=== PATIENT | female | born 1950 | race Caucasian/White ===

== ENCOUNTER → 2017-08-05 | Outpatient (CLI) | payer MEDICARE, OTHER ==
[~2017-08-05] MED LIST: ABAT250V; ACET325 PO; ALBU3IS INH; ALBU90OI6 INH; ALLO100 PO; ALUMAGX30 PO; AMLO10; AMOCLA500 PO; AMYLIPPRO PO; ATEN100; ATEN50 PO; ATIVAN; Aldactone PO; Augmentin 875-1 EACH PO; BENAML10/5; BISA10S PR; BUME1 PO; Bacid1 EACH PO; Bactrim 400-801 EACH PO; CALCAVITDA PO; CALCIUM + D3 E1 EACH PO; CELE100 PO; CEPH500 PO; CHLO25 PO; CHOL10002 PO; COLL250TO TP; CRANBERRY TABL1 EACH PO; CREON; CREON DR 12,001 EACH PO; CREON DR 24,001 EACH PO; CREON PO; CYAN1000 PO; CYAN1000I IM; CYAN500 PO; Ceftin500 MG PO; Cipro500 MG PO; Cleocin HCl300 MG PO; Colace100 MG PO; Cranberry500 M1 PO; DOCU100 PO; DOXY100T53 PO; ELIQUIS2.5 MG PO; ELIQUIS5 MG PO; ENOX80I SC; ERGO50000 PO; FENO145 PO; FERR325 PO; FEXPSEER; FLUT.05NI; FOLI1; FOLI1 PO; FURO20; FURO20 PO; FURO80; FURO80 PO; GABA100 PO; GLIP10 PO; GLUCOSE; HYDACE10B PO; HYDACE5325 PO; HYDMOR2 PO; Hair, Skin & N1 EACH PO; Humalog100 UNIT/1; INSR10I SUBQ; INSUASPI; INSUASPI SC; INSULANI; INSULANI SC; INSULANI SUBQ; INSULANPEN SC; IRON256 MG PO; KETO120T TOP; LEVFLO500 PO; LEVO750 PO; LISI20; LISI20 PO; LISINOPRIL; MAGOXI400 PO; METF500; METF500 PO; METO2.5 PO; METO25 PO; METO25ER PO; METO50; METO50ER PO; METTREX2.5; METTREX2.5 PO; MORP30ER PO; MULVITMIND PO; MULVITMINE; Micro-K10 MEQ; Micro-K10 MEQ PO; Milk Of Ma400 MG/5 M PO; NAPR500 PO; Novolog Fl100 UNIT/1; Novolog Fl100 UNIT/1 SC; OMEP10ER PO; OMEP20ER; OMEP20ER PO; OMEPRAZOLE MAGN20 MG PO; ORENCIA IV; OXYC10ER PO; OXYC10TA19; OXYC5 PO; PARO20; PARO20 PO; PARO30; PAXIL; PAXIL40 MG PO; PENT400ER; PENT400ER PO; POTA10T PO; POTCHL10ER PO; POTCHL20ER PO; PRED10 PO; PRED20 PO; PRED5; PREG100; PREG100 PO; Paxil PO; Potassium99 MG; Prilosec Otc20 MG PO; RXHYD5325; RXHYD5325 PO; Rituxan10 MG/ML; Robaxin500 MG PO; SENN187 PO; SILSUL1TC TOP; SPIR25; SPIR25 PO; SULTRIDS; SULTRIDS PO; Senna-Docusate1 EACH PO; Silvadene20 GM TOP; THIA100 PO; TRAZ100; TRAZ100 PO; TRENTAL PO; Tamiflu75 MG PO; VITAMIN B-1100 MG PO; VITAMIN D22000 UNIT PO; VITAMIN D50000 UNIT PO; VITB100 PO; Vitamin D2000 UNIT PO; WARF5; WARF5 PO; XARELTO20 MG PO; ZOLP10 PO; Zofran Odt4 MG SL; Zofran4 MG PO; [UNRECOGNIZED DRUG - OTHER]; [UNRECOGNIZED DRUG - OTHER] PO; [UNRECOGNIZED DRUG - OTHER] TOP
== END ==
LOC: LAB SHORT 13:51 → PLD 13:51
DX: D48.5 Neoplasm of uncertain behavior of skin (principal)
CPT/HCPCS: 88305

== ENCOUNTER 2017-09-11 19:57 | Emergency (ER) | payer MEDICARE, OTHER ==
[~2017-09-11] VITALS: Ht 154.9 cm; Wt 81.7 kg
[~2017-09-11 19:57] MED LIST changes: -ALLO100 PO; -Augmentin 875-1 EACH PO; -BUME1 PO; -Bactrim 400-801 EACH PO; -DOXY100T53 PO; -Robaxin500 MG PO
[2017-09-11] MEDS ORDERED: CEPH500 PO (21:11)
[2018-02-21] MEDS ORDERED: CEPH500 PO (01:50)
== END 2017-09-11 21:29 | disposition home or self-care (01) ==
LOC: ER 19:57
DX: S51.812A Laceration without foreign body of left forearm, initial encounter (principal); W01.198A Fall on same level from slipping, tripping and stumbling with subsequent striking against other object, initial encounter; Z88.8 Allergy status to other drugs, medicaments and biological substances; Z79.899 Other long term (current) drug therapy; Z79.4 Long term (current) use of insulin; E11.9 Type 2 diabetes mellitus without complications; K21.9 Gastro-esophageal reflux disease without esophagitis; I10 Essential (primary) hypertension; Z87.891 Personal history of nicotine dependence
CPT/HCPCS: 12004; 73090; 90471; 90714; 99283

== ENCOUNTER 2017-09-24 10:14 | Emergency (ER) | payer MEDICARE, OTHER ==
[~2017-09-24] VITALS: Ht 167.6 cm; Wt 86.2 kg
[2017-09-24] MEDS ORDERED: CEPH500 PO (11:43)
[2017-09-24] MEDS ORDERED: DOXY100T53 PO (11:43)
[2018-02-21] MEDS ORDERED: CEPH500 PO (01:50)
== END 2017-09-24 11:59 | disposition home or self-care (01) ==
LOC: ER 10:14
DX: T81.33XA Disruption of traumatic injury wound repair, initial encounter (principal); S51.812D Laceration without foreign body of left forearm, subsequent encounter; Z88.8 Allergy status to other drugs, medicaments and biological substances; Z79.899 Other long term (current) drug therapy; Z79.52 Long term (current) use of systemic steroids; Z79.4 Long term (current) use of insulin; E11.9 Type 2 diabetes mellitus without complications; I10 Essential (primary) hypertension; Z87.891 Personal history of nicotine dependence; W18.39XD Other fall on same level, subsequent encounter
CPT/HCPCS: 99283

== ENCOUNTER 2017-10-12 22:16 | Emergency (ER) | payer MEDICARE, OTHER ==
[~2017-10-12] VITALS: Ht 154.9 cm; Wt 81.7 kg
[~2017-10-12 22:16] MED LIST changes: +DOXY100T53 PO
[2017-10-12 23:29] LABS: Source, Urine Voided
[2017-10-12 23:30] LABS: Bilirubin, Urine Neg (Neg); Blood, Urine 1+ (Neg); Glucose Qualitative, Urine Neg (Neg); Ketones, Urine Neg (Neg); Leukocyte Esterase, Urine Neg (Neg); Nitrite, Urine Neg (Neg); Protein, Urine Neg (Neg); Urobilinogen, Urine NORM (Normal)
[2017-10-12 23:39] LABS: Appearance, Urine Clear (Clear); Color, Urine Yellow (P-Yellow)
[2017-10-12 23:40] LABS: Bacteria Mod /hpf; Red Blood Cells, Urine 0-2 /hpf (0-2); Squamous Epithelial Cells Few /hpf (Few); White Blood Cells, Urine 0-2 /hpf (0-5)
[2017-10-13] MEDS ORDERED: Robaxin500 MG PO (00:09)
[2018-02-21] MEDS ORDERED: CEPH500 PO (01:50)
== END 2017-10-13 00:18 | disposition home or self-care (01) ==
LOC: ER 22:16
PROVIDERS: Physician Assistant
DX: M25.552 Pain in left hip (principal); K21.9 Gastro-esophageal reflux disease without esophagitis; E11.9 Type 2 diabetes mellitus without complications; I10 Essential (primary) hypertension; Z91.048 Other nonmedicinal substance allergy status; Z79.899 Other long term (current) drug therapy; Z79.52 Long term (current) use of systemic steroids; Z79.4 Long term (current) use of insulin; Z87.891 Personal history of nicotine dependence; Z87.81 Personal history of (healed) traumatic fracture
CPT/HCPCS: 73502; 81000; 81001; 87086; 99283

== ENCOUNTER 2018-01-29 07:27 | Inpatient (IN) | payer MEDICARE, OTHER ==
[~2018-01-29] VITALS: Ht 157.5 cm; Wt 88.1 kg
[~2018-01-29 07:27] MED LIST changes: +Robaxin500 MG PO
[2018-01-29] MEDS ORDERED: ALLO100 PO (07:40)
[2018-01-29 08:20] LABS: Source, Urine Catheter
[2018-01-29 08:23] LABS: Bilirubin, Urine Neg (Neg); Blood, Urine 2+ (Neg); Glucose Qualitative, Urine 1+ (Neg); Ketones, Urine Neg (Neg); Leukocyte Esterase, Urine 2+ (Neg); Nitrite, Urine Neg (Neg); Protein, Urine Neg (Neg); Specific Gravity, Urine 1.015 (1.003-1.022); Urobilinogen, Urine NORM (Normal)
[2018-01-29 08:29] LABS: Appearance, Urine Clear (Clear); Color, Urine Yellow (P-Yellow)
[2018-01-29 08:31] LABS: Bacteria Not Seen /hpf; Red Blood Cells, Urine 0-2 /hpf (0-2)
[2018-01-29 08:32] LABS: Squamous Epithelial Cells Rare /hpf (Few)
[2018-01-29 09:03] LABS: BASOPHILS ABSOLUTE AUTO 0.06 K/mm3 (0.00-0.23); BASOPHILS PERCENT AUTO 0 % (0-2); EOSINOPHILS ABSOLUTE AUTO 0.09 K/mm3 (0.00-0.68); EOSINOPHILS PERCENT AUTO 1 % (0-6); Hematocrit 32.4 % (33.0-51.0); Hemoglobin 10.8 g/dL (11.5-16.0); IMMATURE GRAN ABSOLUTE AUTO 0.07 K/mm3 (0.00-0.10); IMMATURE GRAN PERCENT AUTO 1 % (0-1); LYMPHOCYTES ABSOLUTE AUTO 1.85 K/mm3 (0.84-5.20); LYMPHOCYTES PERCENT AUTO 13 % (21-46); MONOCYTES ABSOLUTE AUTO 0.98 K/mm3 (0.16-1.47); MONOCYTES PERCENT AUTO 7 % (4-13); Mean Corpuscular HGB 33.6 pg (26.0-34.0); Mean Corpuscular HGB Conc 33.3 g/dL (31.5-36.5); Mean Corpuscular Volume 101 fL (80-100); Mean Platelet Volume 10.9 fL (9.1-12.4); NEUTROPHILS ABSOLUTE AUTO 11.52 K/mm3 (1.96-9.15); NEUTROPHILS PERCENT AUTO 79 % (41-73); Platelet Count 190 K/mm3 (150-400); RDW Coefficient Variation 13.4 % (11.7-14.2); RDW Standard Deviation 48.8 fL (35.1-46.3); Red Blood Cell Count 3.21 M/mm3 (3.80-5.20); White Blood Cell Count 14.57 K/mm3 (4.00-11.30)
[2018-01-29 09:20] LABS: Albumin, Blood 3.1 g/dL (3.4-5.0); Albumin/Globulin Ratio 1.1 (0.8-1.8); Bilirubin, Total 0.8 mg/dL (0.1-1.0); Bun/Creatinine Ratio 21.5 (12.0-20.0); Calcium, Blood 8.5 mg/dL (8.5-10.1); Globulin, Blood 2.9 g/dL (2.2-4.0); Potassium, Blood 3.6 mmol/L (3.5-5.5)
[2018-01-29 09:24] LABS: International Normalized Ratio 1.17; Prothrombin Time Results 11.9 Sec (9.7-11.5)
[2018-01-30 04:00] LABS: BASOPHILS ABSOLUTE AUTO 0.04 K/mm3 (0.00-0.23); BASOPHILS PERCENT AUTO 0 % (0-2); EOSINOPHILS ABSOLUTE AUTO 0.01 K/mm3 (0.00-0.68); EOSINOPHILS PERCENT AUTO 0 % (0-6); Hematocrit 30.4 % (33.0-51.0); Hemoglobin 9.8 g/dL (11.5-16.0); IMMATURE GRAN ABSOLUTE AUTO 0.04 K/mm3 (0.00-0.10); IMMATURE GRAN PERCENT AUTO 0 % (0-1); LYMPHOCYTES ABSOLUTE AUTO 2.03 K/mm3 (0.84-5.20); LYMPHOCYTES PERCENT AUTO 16 % (21-46); MONOCYTES ABSOLUTE AUTO 0.56 K/mm3 (0.16-1.47); MONOCYTES PERCENT AUTO 5 % (4-13); Mean Corpuscular HGB 32.6 pg (26.0-34.0); Mean Corpuscular HGB Conc 32.2 g/dL (31.5-36.5); Mean Corpuscular Volume 101 fL (80-100); Mean Platelet Volume 11.7 fL (9.1-12.4); NEUTROPHILS PERCENT AUTO 79 % (41-73); Platelet Count 173 K/mm3 (150-400); RDW Coefficient Variation 13.7 % (11.7-14.2); RDW Standard Deviation 49.8 fL (35.1-46.3); Red Blood Cell Count 3.01 M/mm3 (3.80-5.20); White Blood Cell Count 12.48 K/mm3 (4.00-11.30)
[2018-01-30 04:24] LABS: Anion Gap 8 mmol/L (6-16); Blood Urea Nitrogen 35 mg/dL (8-24); Bun/Creatinine Ratio 17.7 (12.0-20.0); CO2, Blood 27 mmol/L (21-32); Calcium, Blood 8.1 mg/dL (8.5-10.1); Chloride, Blood 108 mmol/L (98-108); Creatinine, Blood 1.98 mg/dL (0.40-1.00); Glomerular Filtration Rate 27 (60-); Glucose, Blood 236 mg/dL (70-99); Potassium, Blood 4.1 mmol/L (3.5-5.5); Sodium, Blood 143 mmol/L (136-145); Vancomycin, Random 10.2 ug/mL
[2018-01-31 05:22] LABS: BASOPHILS ABSOLUTE AUTO 0.05 K/mm3 (0.00-0.23); BASOPHILS PERCENT AUTO 1 % (0-2); EOSINOPHILS ABSOLUTE AUTO 0.11 K/mm3 (0.00-0.68); EOSINOPHILS PERCENT AUTO 1 % (0-6); Hematocrit 30.8 % (33.0-51.0); Hemoglobin 10.1 g/dL (11.5-16.0); IMMATURE GRAN ABSOLUTE AUTO 0.04 K/mm3 (0.00-0.10); IMMATURE GRAN PERCENT AUTO 1 % (0-1); LYMPHOCYTES ABSOLUTE AUTO 2.36 K/mm3 (0.84-5.20); LYMPHOCYTES PERCENT AUTO 27 % (21-46); MONOCYTES ABSOLUTE AUTO 0.72 K/mm3 (0.16-1.47); MONOCYTES PERCENT AUTO 8 % (4-13); Mean Corpuscular HGB 32.7 pg (26.0-34.0); Mean Corpuscular HGB Conc 32.8 g/dL (31.5-36.5); Mean Corpuscular Volume 100 fL (80-100); Mean Platelet Volume 11.4 fL (9.1-12.4); NEUTROPHILS ABSOLUTE AUTO 5.55 K/mm3 (1.96-9.15); NEUTROPHILS PERCENT AUTO 63 % (41-73); Platelet Count 182 K/mm3 (150-400); RDW Coefficient Variation 13.4 % (11.7-14.2); RDW Standard Deviation 48.6 fL (35.1-46.3); Red Blood Cell Count 3.09 M/mm3 (3.80-5.20); White Blood Cell Count 8.83 K/mm3 (4.00-11.30)
[2018-01-31 05:44] LABS: Albumin, Blood 2.6 g/dL (3.4-5.0); Anion Gap 9 mmol/L (6-16); Blood Urea Nitrogen 26 mg/dL (8-24); Bun/Creatinine Ratio 15.3 (12.0-20.0); CO2, Blood 25 mmol/L (21-32); Calcium, Blood 8.4 mg/dL (8.5-10.1); Chloride, Blood 111 mmol/L (98-108); Glomerular Filtration Rate 32 (60-); Glucose, Blood 119 mg/dL (70-99); Phosphorus, Blood 1.8 mg/dL (2.5-4.9); Potassium, Blood 3.9 mmol/L (3.5-5.5); Sodium, Blood 145 mmol/L (136-145); Vancomycin, Random 11.6 ug/mL
[2018-02-01 05:31] LABS: BASOPHILS ABSOLUTE AUTO 0.04 K/mm3 (0.00-0.23); BASOPHILS PERCENT AUTO 1 % (0-2); EOSINOPHILS ABSOLUTE AUTO 0.12 K/mm3 (0.00-0.68); EOSINOPHILS PERCENT AUTO 2 % (0-6); Hematocrit 30.5 % (33.0-51.0); IMMATURE GRAN ABSOLUTE AUTO 0.05 K/mm3 (0.00-0.10); IMMATURE GRAN PERCENT AUTO 1 % (0-1); LYMPHOCYTES ABSOLUTE AUTO 1.81 K/mm3 (0.84-5.20); LYMPHOCYTES PERCENT AUTO 26 % (21-46); MONOCYTES ABSOLUTE AUTO 0.72 K/mm3 (0.16-1.47); MONOCYTES PERCENT AUTO 11 % (4-13); Mean Corpuscular HGB 32.7 pg (26.0-34.0); Mean Corpuscular HGB Conc 32.8 g/dL (31.5-36.5); Mean Corpuscular Volume 100 fL (80-100); Mean Platelet Volume 11.2 fL (9.1-12.4); NEUTROPHILS ABSOLUTE AUTO 4.14 K/mm3 (1.96-9.15); NEUTROPHILS PERCENT AUTO 60 % (41-73); Platelet Count 187 K/mm3 (150-400); RDW Coefficient Variation 13.6 % (11.7-14.2); RDW Standard Deviation 49.1 fL (35.1-46.3); Red Blood Cell Count 3.06 M/mm3 (3.80-5.20); White Blood Cell Count 6.88 K/mm3 (4.00-11.30)
[2018-02-01 05:56] LABS: Albumin, Blood 2.7 g/dL (3.4-5.0); Anion Gap 8 mmol/L (6-16); Blood Urea Nitrogen 21 mg/dL (8-24); Bun/Creatinine Ratio 13.8 (12.0-20.0); CO2, Blood 25 mmol/L (21-32); Calcium, Blood 8.5 mg/dL (8.5-10.1); Chloride, Blood 113 mmol/L (98-108); Creatinine, Blood 1.52 mg/dL (0.40-1.00); Glomerular Filtration Rate 36 (60-); Glucose, Blood 91 mg/dL (70-99); Phosphorus, Blood 2.6 mg/dL (2.5-4.9); Potassium, Blood 3.6 mmol/L (3.5-5.5); Sodium, Blood 146 mmol/L (136-145)
[2018-02-02 05:46] LABS: BASOPHILS ABSOLUTE AUTO 0.05 K/mm3 (0.00-0.23); BASOPHILS PERCENT AUTO 1 % (0-2); EOSINOPHILS ABSOLUTE AUTO 0.14 K/mm3 (0.00-0.68); EOSINOPHILS PERCENT AUTO 2 % (0-6); Hematocrit 31.1 % (33.0-51.0); Hemoglobin 10.6 g/dL (11.5-16.0); IMMATURE GRAN ABSOLUTE AUTO 0.05 K/mm3 (0.00-0.10); IMMATURE GRAN PERCENT AUTO 1 % (0-1); LYMPHOCYTES ABSOLUTE AUTO 2.45 K/mm3 (0.84-5.20); LYMPHOCYTES PERCENT AUTO 35 % (21-46); MONOCYTES ABSOLUTE AUTO 0.74 K/mm3 (0.16-1.47); MONOCYTES PERCENT AUTO 11 % (4-13); Mean Corpuscular HGB 33.9 pg (26.0-34.0); Mean Corpuscular HGB Conc 34.1 g/dL (31.5-36.5); Mean Corpuscular Volume 99 fL (80-100); Mean Platelet Volume 10.5 fL (9.1-12.4); NEUTROPHILS ABSOLUTE AUTO 3.58 K/mm3 (1.96-9.15); NEUTROPHILS PERCENT AUTO 51 % (41-73); Platelet Count 195 K/mm3 (150-400); RDW Coefficient Variation 13.7 % (11.7-14.2); RDW Standard Deviation 49.7 fL (35.1-46.3); Red Blood Cell Count 3.13 M/mm3 (3.80-5.20); White Blood Cell Count 7.01 K/mm3 (4.00-11.30)
[2018-02-02 06:03] LABS: Albumin, Blood 2.9 g/dL (3.4-5.0); Anion Gap 10 mmol/L (6-16); Blood Urea Nitrogen 21 mg/dL (8-24); Bun/Creatinine Ratio 15.8 (12.0-20.0); CO2, Blood 24 mmol/L (21-32); Calcium, Blood 9.1 mg/dL (8.5-10.1); Chloride, Blood 113 mmol/L (98-108); Creatinine, Blood 1.33 mg/dL (0.40-1.00); Glomerular Filtration Rate 42 (60-); Glucose, Blood 74 mg/dL (70-99); Phosphorus, Blood 3.5 mg/dL (2.5-4.9); Potassium, Blood 3.5 mmol/L (3.5-5.5); Sodium, Blood 147 mmol/L (136-145)
[2018-02-02 08:45] LABS: Vancomycin, Trough 12.3 ug/mL (5.0-10.0)
[2018-02-02] MEDS ORDERED: Silvadene20 GM TOP (13:28)
[2018-02-02] MEDS ORDERED: BUME1 PO (13:29)
[2018-02-02] MEDS ORDERED: CEPH500 PO (13:30)
== END 2018-02-02 14:39 | disposition home or self-care (01) | DRG 871 ==
LOC: ER 07:27 → ICUW 10:53 → MEDS 10:53 → ICUW 11:37 → MEDS 01-30 13:27 → ENPENDDIS 02-02 10:33 → MEDS 02-02 14:39
PROVIDERS: Family Medicine; Nurse Practitioner Family
PROC: 05HM33Z Insertion of Infusion Device into Right Internal Jugular Vein, Percutaneous Approach (ICD-10-PCS; principal; 2018-01-29)
PROC: B543ZZA Ultrasonography of Right Jugular Veins, Guidance (ICD-10-PCS; 2018-01-29)
PROC: 0JDQ3ZZ Extraction of Right Foot Subcutaneous Tissue and Fascia, Percutaneous Approach (ICD-10-PCS; 2018-01-29)
PROC: 02H633Z Insertion of Infusion Device into Right Atrium, Percutaneous Approach (ICD-10-PCS; 2018-01-29)
DX: A41.9 Sepsis, unspecified organism (principal); G92 Toxic encephalopathy; N39.0 Urinary tract infection, site not specified; D68.61 Antiphospholipid syndrome; L03.115 Cellulitis of right lower limb; N17.9 Acute kidney failure, unspecified; E87.0 Hyperosmolality and hypernatremia; N18.4 Chronic kidney disease, stage 4 (severe); M79.7 Fibromyalgia; Z79.4 Long term (current) use of insulin; K21.9 Gastro-esophageal reflux disease without esophagitis; F32.9 Major depressive disorder, single episode, unspecified; Z87.891 Personal history of nicotine dependence; I95.9 Hypotension, unspecified; I12.9 Hypertensive chronic kidney disease with stage 1 through stage 4 chronic kidney disease, or unspecified chronic kidney disease; M06.9 Rheumatoid arthritis, unspecified; E11.621 Type 2 diabetes mellitus with foot ulcer; R65.20 Severe sepsis without septic shock; E11.649 Type 2 diabetes mellitus with hypoglycemia without coma; D63.1 Anemia in chronic kidney disease; L97.519 Non-pressure chronic ulcer of other part of right foot with unspecified severity; Z86.718 Personal history of other venous thrombosis and embolism; G89.4 Chronic pain syndrome; Z89.411 Acquired absence of right great toe; E11.22 Type 2 diabetes mellitus with diabetic chronic kidney disease
CPT/HCPCS: 36415; 36556; 71046; 73610; 73718; 73721; 80048; 80053; 80069; 80202; 81001; 82947; 83605; 85025; 85610; 85730; 87040; 87070; 87075; 87086; 87205; 93926; 93971; 96361; 96365; 96366; 99285-25; C1751; J0360; J1650; J1815; J1940; J2543; J3010; J3370; J7030; J7120; P9612

== ENCOUNTER 2018-03-06 11:00 | Emergency (ER) | payer MEDICARE, OTHER ==
[~2018-03-06] VITALS: Ht 167.6 cm; Wt 86.2 kg
[~2018-03-06 11:00] MED LIST changes: +ALLO100 PO; +BUME1 PO
== END 2018-03-06 11:53 | disposition home or self-care (01) ==
LOC: ER 11:00
DX: S81.012D Laceration without foreign body, left knee, subsequent encounter (principal); E11.9 Type 2 diabetes mellitus without complications; K21.9 Gastro-esophageal reflux disease without esophagitis; Z91.048 Other nonmedicinal substance allergy status; Z79.899 Other long term (current) drug therapy; Z79.52 Long term (current) use of systemic steroids; Z79.4 Long term (current) use of insulin; Z87.891 Personal history of nicotine dependence

== ENCOUNTER 2018-03-29 08:47 | Inpatient (IN) | payer MEDICARE, OTHER ==
[~2018-03-29] VITALS: Ht 154.9 cm; Wt 85.7 kg
[2018-03-29 09:11] LABS: BASOPHILS ABSOLUTE AUTO 0.07 K/mm3 (0.00-0.23); BASOPHILS PERCENT AUTO 1 % (0-2); EOSINOPHILS ABSOLUTE AUTO 0.15 K/mm3 (0.00-0.68); EOSINOPHILS PERCENT AUTO 2 % (0-6); Hematocrit 35.5 % (33.0-51.0); Hemoglobin 12.1 g/dL (11.5-16.0); IMMATURE GRAN ABSOLUTE AUTO 0.06 K/mm3 (0.00-0.10); IMMATURE GRAN PERCENT AUTO 1 % (0-1); LYMPHOCYTES ABSOLUTE AUTO 3.34 K/mm3 (0.84-5.20); LYMPHOCYTES PERCENT AUTO 32 % (21-46); MONOCYTES ABSOLUTE AUTO 1.09 K/mm3 (0.16-1.47); MONOCYTES PERCENT AUTO 11 % (4-13); Mean Corpuscular HGB 33.8 pg (26.0-34.0); Mean Corpuscular HGB Conc 34.1 g/dL (31.5-36.5); Mean Corpuscular Volume 99 fL (80-100); NEUTROPHILS PERCENT AUTO 54 % (41-73); Platelet Count 328 K/mm3 (150-400); RDW Coefficient Variation 13.2 % (11.7-14.2); RDW Standard Deviation 47.6 fL (35.1-46.3); Red Blood Cell Count 3.58 M/mm3 (3.80-5.20); White Blood Cell Count 10.31 K/mm3 (4.00-11.30)
[2018-03-29 09:26] LABS: Alanine Aminotransfer (ALT/SGP 23 U/L (12-78); Albumin/Globulin Ratio 0.9 (0.8-1.8); Alk Phos 38 U/L (50-136); Anion Gap 14 mmol/L (6-16); Aspartate Aminotrans (AST/SGOT 32 U/L (12-37); Bilirubin, Total 0.6 mg/dL (0.1-1.0); Blood Urea Nitrogen 69 mg/dL (8-24); Bun/Creatinine Ratio 14.3 (12.0-20.0); CO2, Blood 27 mmol/L (21-32); Calcium, Blood 8.7 mg/dL (8.5-10.1); Chloride, Blood 86 mmol/L (98-108); Creatinine, Blood 4.81 mg/dL (0.40-1.00); Globulin, Blood 3.4 g/dL (2.2-4.0); Glomerular Filtration Rate 10 (60-); Glucose, Blood 283 mg/dL (70-99); Potassium, Blood 3.7 mmol/L (3.5-5.5); Sodium, Blood 127 mmol/L (136-145); Total Protein, Blood 6.4 g/dL (6.4-8.2)
[2018-03-29 09:41] LABS: Source, Urine Clean Catch
[2018-03-29 09:46] LABS: Bilirubin, Urine Neg (Neg); Blood, Urine 2+ (Neg); Glucose Qualitative, Urine Neg (Neg); Ketones, Urine Neg (Neg); Leukocyte Esterase, Urine 2+ (Neg); Nitrite, Urine Neg (Neg); Protein, Urine Neg (Neg); Urobilinogen, Urine NORM (Normal)
[2018-03-29 09:56] LABS: Troponin I <0.015 ng/mL (0.000-0.040)
[2018-03-29 09:57] LABS: Appearance, Urine Clear (Clear); Color, Urine Yellow (P-Yellow)
[2018-03-29 10:01] LABS: Bacteria Few /hpf; Squamous Epithelial Cells Mod /hpf (Few)
[2018-03-29] MEDS ORDERED: Bactrim 400-801 EACH PO (10:46)
[2018-03-29 16:47] LABS: International Normalized Ratio 1.2; Prothrombin Time Results 12.2 Sec (9.7-11.5)
[2018-03-30 07:50] LABS: BASOPHILS ABSOLUTE AUTO 0.02 K/mm3 (0.00-0.23); BASOPHILS PERCENT AUTO 0 % (0-2); EOSINOPHILS PERCENT AUTO 0 % (0-6); Hematocrit 29.1 % (33.0-51.0); IMMATURE GRAN ABSOLUTE AUTO 0.06 K/mm3 (0.00-0.10); IMMATURE GRAN PERCENT AUTO 1 % (0-1); LYMPHOCYTES ABSOLUTE AUTO 2.51 K/mm3 (0.84-5.20); LYMPHOCYTES PERCENT AUTO 29 % (21-46); MONOCYTES ABSOLUTE AUTO 0.65 K/mm3 (0.16-1.47); MONOCYTES PERCENT AUTO 8 % (4-13); Mean Corpuscular HGB 34.3 pg (26.0-34.0); Mean Corpuscular HGB Conc 35.7 g/dL (31.5-36.5); Mean Platelet Volume 11.1 fL (9.1-12.4); NEUTROPHILS ABSOLUTE AUTO 5.31 K/mm3 (1.96-9.15); NEUTROPHILS PERCENT AUTO 62 % (41-73); Platelet Count 219 K/mm3 (150-400); RDW Coefficient Variation 12.9 % (11.7-14.2); RDW Standard Deviation 44.6 fL (35.1-46.3); Red Blood Cell Count 3.03 M/mm3 (3.80-5.20); White Blood Cell Count 8.55 K/mm3 (4.00-11.30)
[2018-03-30 07:52] LABS: Mean Corpuscular Volume 96 fL (80-100)
[2018-03-30 07:53] LABS: Hemoglobin 10.4 g/dL (11.5-16.0)
[2018-03-30 08:11] LABS: Bun/Creatinine Ratio 15.4 (12.0-20.0); Calcium, Blood 7.6 mg/dL (8.5-10.1); Creatinine, Blood 3.64 mg/dL (0.40-1.00); Potassium, Blood 3.7 mmol/L (3.5-5.5)
[2018-03-31 06:02] LABS: BASOPHILS ABSOLUTE AUTO 0.04 K/mm3 (0.00-0.23); BASOPHILS PERCENT AUTO 1 % (0-2); EOSINOPHILS ABSOLUTE AUTO 0.06 K/mm3 (0.00-0.68); EOSINOPHILS PERCENT AUTO 1 % (0-6); Hematocrit 33.2 % (33.0-51.0); Hemoglobin 11.1 g/dL (11.5-16.0); IMMATURE GRAN ABSOLUTE AUTO 0.04 K/mm3 (0.00-0.10); IMMATURE GRAN PERCENT AUTO 1 % (0-1); LYMPHOCYTES ABSOLUTE AUTO 2.54 K/mm3 (0.84-5.20); LYMPHOCYTES PERCENT AUTO 42 % (21-46); MONOCYTES ABSOLUTE AUTO 0.55 K/mm3 (0.16-1.47); MONOCYTES PERCENT AUTO 9 % (4-13); Mean Corpuscular HGB 33.6 pg (26.0-34.0); Mean Corpuscular HGB Conc 33.4 g/dL (31.5-36.5); Mean Corpuscular Volume 101 fL (80-100); NEUTROPHILS ABSOLUTE AUTO 2.84 K/mm3 (1.96-9.15); NEUTROPHILS PERCENT AUTO 47 % (41-73); Platelet Count 267 K/mm3 (150-400); RDW Coefficient Variation 13.2 % (11.7-14.2); RDW Standard Deviation 48.6 fL (35.1-46.3); White Blood Cell Count 6.07 K/mm3 (4.00-11.30)
[2018-03-31 06:30] LABS: Albumin, Blood 2.7 g/dL (3.4-5.0); Anion Gap 9 mmol/L (6-16); Blood Urea Nitrogen 45 mg/dL (8-24); Bun/Creatinine Ratio 15.1 (12.0-20.0); CO2, Blood 27 mmol/L (21-32); Calcium, Blood 8.5 mg/dL (8.5-10.1); Chloride, Blood 103 mmol/L (98-108); Creatinine, Blood 2.99 mg/dL (0.40-1.00); Glomerular Filtration Rate 17 (60-); Glucose, Blood 107 mg/dL (70-99); Phosphorus, Blood 3.2 mg/dL (2.5-4.9); Potassium, Blood 4.3 mmol/L (3.5-5.5); Sodium, Blood 139 mmol/L (136-145); Vancomycin, Random 15.7 ug/mL
[2018-04-01 05:48] LABS: Vancomycin, Random 16.9 ug/mL
[2018-04-01 08:20] LABS: BASOPHILS ABSOLUTE AUTO 0.05 K/mm3 (0.00-0.23); BASOPHILS PERCENT AUTO 1 % (0-2); EOSINOPHILS PERCENT AUTO 2 % (0-6); Hematocrit 34.6 % (33.0-51.0); Hemoglobin 11.3 g/dL (11.5-16.0); IMMATURE GRAN ABSOLUTE AUTO 0.04 K/mm3 (0.00-0.10); IMMATURE GRAN PERCENT AUTO 1 % (0-1); LYMPHOCYTES ABSOLUTE AUTO 2.67 K/mm3 (0.84-5.20); LYMPHOCYTES PERCENT AUTO 40 % (21-46); MONOCYTES ABSOLUTE AUTO 0.68 K/mm3 (0.16-1.47); MONOCYTES PERCENT AUTO 10 % (4-13); Mean Corpuscular HGB 33.7 pg (26.0-34.0); Mean Corpuscular HGB Conc 32.7 g/dL (31.5-36.5); Mean Corpuscular Volume 103 fL (80-100); Mean Platelet Volume 11.4 fL (9.1-12.4); NEUTROPHILS ABSOLUTE AUTO 3.15 K/mm3 (1.96-9.15); NEUTROPHILS PERCENT AUTO 47 % (41-73); Platelet Count 246 K/mm3 (150-400); RDW Coefficient Variation 13.4 % (11.7-14.2); RDW Standard Deviation 50.9 fL (35.1-46.3); Red Blood Cell Count 3.35 M/mm3 (3.80-5.20); White Blood Cell Count 6.69 K/mm3 (4.00-11.30)
[2018-04-01 09:33] LABS: Bun/Creatinine Ratio 14.9 (12.0-20.0); Creatinine, Blood 2.42 mg/dL (0.40-1.00)
[2018-04-02 05:33] LABS: Hematocrit 35.7 % (33.0-51.0); Hemoglobin 11.9 g/dL (11.5-16.0); Mean Corpuscular HGB Conc 33.3 g/dL (31.5-36.5); Mean Platelet Volume 11.5 fL (9.1-12.4); Platelet Count 187 K/mm3 (150-400); RDW Coefficient Variation 13.3 % (11.7-14.2); RDW Standard Deviation 48.3 fL (35.1-46.3); Red Blood Cell Count 3.61 M/mm3 (3.80-5.20); White Blood Cell Count 7.94 K/mm3 (4.00-11.30)
[2018-04-02 05:35] LABS: Anion Gap 12 mmol/L (6-16); Blood Urea Nitrogen 32 mg/dL (8-24); Bun/Creatinine Ratio 14.1 (12.0-20.0); CO2, Blood 20 mmol/L (21-32); Calcium, Blood 8.8 mg/dL (8.5-10.1); Chloride, Blood 106 mmol/L (98-108); Creatinine, Blood 2.27 mg/dL (0.40-1.00); Glomerular Filtration Rate 23 (60-); Glucose, Blood 156 mg/dL (70-99); Mean Corpuscular Volume 99 fL (80-100); Potassium, Blood 4.2 mmol/L (3.5-5.5); Sodium, Blood 138 mmol/L (136-145); Vancomycin, Random 18.7 ug/mL
[2018-04-02] MEDS ORDERED: ELIQUIS5 MG PO (14:33)
[2018-04-02] MEDS ORDERED: ACET325 PO (14:33)
[2018-04-02] MEDS ORDERED: Augmentin 875-1 EACH PO (14:38)
== END 2018-04-02 15:42 | disposition home or self-care (01) | DRG 871 ==
LOC: ER 08:47 → ICUW 11:06 → MEDS 11:06 → ICUE 11:06 → MEDS 03-30 13:30
PROVIDERS: Emergency Medicine; Internal Medicine; Internal Medicine Critical Care Medicine; Pharmacist
DX: A41.9 Sepsis, unspecified organism (principal); R65.21 Severe sepsis with septic shock; K85.90 Acute pancreatitis without necrosis or infection, unspecified; G92 Toxic encephalopathy; N17.9 Acute kidney failure, unspecified; D68.61 Antiphospholipid syndrome; N39.0 Urinary tract infection, site not specified; L03.116 Cellulitis of left lower limb; L03.115 Cellulitis of right lower limb; K62.5 Hemorrhage of anus and rectum; N10 Acute pyelonephritis; M94.8X9 Other specified disorders of cartilage, unspecified sites; Z79.4 Long term (current) use of insulin; E11.9 Type 2 diabetes mellitus without complications; K21.9 Gastro-esophageal reflux disease without esophagitis; Z86.14 Personal history of Methicillin resistant Staphylococcus aureus infection; Z87.891 Personal history of nicotine dependence; E11.621 Type 2 diabetes mellitus with foot ulcer; I95.9 Hypotension, unspecified; R53.83 Other fatigue; E78.5 Hyperlipidemia, unspecified; I12.9 Hypertensive chronic kidney disease with stage 1 through stage 4 chronic kidney disease, or unspecified chronic kidney disease; E86.0 Dehydration; N18.3 Chronic kidney disease, stage 3 (moderate); T37.0X5A Adverse effect of sulfonamides, initial encounter; Y92.9 Unspecified place or not applicable; T40.601A Poisoning by unspecified narcotics, accidental (unintentional), initial encounter; L97.519 Non-pressure chronic ulcer of other part of right foot with unspecified severity; M35.9 Systemic involvement of connective tissue, unspecified; M94.1 Relapsing polychondritis
CPT/HCPCS: 36415; 51702; 71045; 73630; 80048; 80053; 80069; 80202; 81001; 82530; 82947; 83605; 83735; 84484; 85025; 85027; 85379; 85610; 85730; 87040; 87076; 87086; 87185; 93005; 93010; 93306; 93970; 94760; 96361; 96365; 96367; 96375; 98960; 99285-25; C9113; J1644; J1815; J2543; J2930; J3010; J3370; J7030; J7060; J7120; P9612

== ENCOUNTER 2018-07-25 09:06 | Inpatient (IN) | payer MEDICARE, OTHER ==
[~2018-07-25] VITALS: Ht 165.1 cm; Wt 82.3 kg
[~2018-07-25 09:06] MED LIST changes: +Augmentin 875-1 EACH PO; +Bactrim 400-801 EACH PO
[2018-07-25 09:31] LABS: BASOPHILS ABSOLUTE AUTO 0.07 K/mm3 (0.00-0.23); BASOPHILS PERCENT AUTO 1 % (0-2); EOSINOPHILS ABSOLUTE AUTO 0.07 K/mm3 (0.00-0.68); EOSINOPHILS PERCENT AUTO 1 % (0-6); Hematocrit 39.8 % (33.0-51.0); Hemoglobin 13.9 g/dL (11.5-16.0); IMMATURE GRAN ABSOLUTE AUTO 0.05 K/mm3 (0.00-0.10); IMMATURE GRAN PERCENT AUTO 0 % (0-1); LYMPHOCYTES PERCENT AUTO 22 % (21-46); MONOCYTES ABSOLUTE AUTO 1.36 K/mm3 (0.16-1.47); MONOCYTES PERCENT AUTO 12 % (4-13); Mean Corpuscular HGB 33.7 pg (26.0-34.0); Mean Corpuscular HGB Conc 34.9 g/dL (31.5-36.5); Mean Corpuscular Volume 96 fL (80-100); Mean Platelet Volume 11.4 fL (9.1-12.4); NEUTROPHILS PERCENT AUTO 65 % (41-73); Platelet Count 222 K/mm3 (150-400); RDW Coefficient Variation 12.9 % (11.7-14.2); RDW Standard Deviation 45.7 fL (35.1-46.3); Red Blood Cell Count 4.13 M/mm3 (3.80-5.20); White Blood Cell Count 11.85 K/mm3 (4.00-11.30)
[2018-07-25 09:46] LABS: Source, Urine Catheter
[2018-07-25 09:51] LABS: Bilirubin, Urine Neg (Neg); Blood, Urine 4+ (Neg); Glucose Qualitative, Urine Neg (Neg); Ketones, Urine Neg (Neg); Leukocyte Esterase, Urine 3+ (Neg); Nitrite, Urine Neg (Neg); Protein, Urine 2+ (Neg); Urobilinogen, Urine 1+ (Normal)
[2018-07-25 10:04] LABS: Color, Urine Yellow (P-Yellow)
[2018-07-25 10:05] LABS: Albumin, Blood 3.2 g/dL (3.4-5.0); Albumin/Globulin Ratio 0.9 (0.8-1.8); Bilirubin, Total 0.9 mg/dL (0.1-1.0); Bun/Creatinine Ratio 30.3 (12.0-20.0); Calcium, Blood 9.6 mg/dL (8.5-10.1); Creatinine, Blood 1.55 mg/dL (0.40-1.00); Globulin, Blood 3.6 g/dL (2.2-4.0); Potassium, Blood 2.3 mmol/L (3.5-5.5); Total Protein, Blood 6.8 g/dL (6.4-8.2)
[2018-07-25 10:05] LABS: Appearance, Urine Hazy (Clear)
[2018-07-25 10:06] LABS: Bacteria Many /hpf; Red Blood Cells, Urine TNTC /hpf (0-2); Transitional Epithelial Cells Mod /hpf ({null, 0-Rare}); White Blood Cells, Urine TNTC /hpf (0-5)
[2018-07-25 10:07] LABS: Squamous Epithelial Cells Rare /hpf (Few)
[2018-07-25] MEDS ORDERED: PREG100 PO (10:26)
[2018-07-25] MEDS ORDERED: Silvadene20 GM TOP (10:26)
[2018-07-25] MEDS ORDERED: Novolin R100 UNIT/M SC (10:27)
[2018-07-25] MEDS ORDERED: HYDMOR2 PO (10:27)
[2018-07-25] MEDS ORDERED: PRED10 PO (10:28)
[2018-07-25] MEDS ORDERED: ELIQUIS5 MG PO (10:28)
[2018-07-25] MEDS ORDERED: HUMALOG KW200 UNIT/1 (10:29)
[2018-07-25] MEDS ORDERED: INSULANPEN SC (10:30)
[2018-07-25] MEDS ORDERED: METO25 PO (10:30)
[2018-07-25] MEDS ORDERED: OMEPRAZOLE MAGN20 MG PO (10:31)
[2018-07-25] MEDS ORDERED: PARO20 PO (10:31)
[2018-07-25] MEDS ORDERED: FENO145 PO (10:31)
[2018-07-25] MEDS ORDERED: B-1100 MG PO (10:32)
[2018-07-25] MEDS ORDERED: CREON DR 12,001 EACH PO (10:32)
[2018-07-25] MEDS ORDERED: CALCIUM + D3 E1 EACH PO (10:32)
[2018-07-25] MEDS ORDERED: FOLI1 PO (10:32)
[2018-07-25] MEDS ORDERED: METO2.5 PO (10:33)
--- NOTE | 2018-07-25 18:00 | NUR ---
SHIFT SUMMARY PATIENT BROUGHT TO THE FLOOR TODAY IN THE 1200 HOUR. 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 SHE WAS GIVEN A DOSE OF ROCEPHIN IN THE ER PRIOR TO ADMISSION TO THE FLOOR SO NO WOUND CULTURE COULD BE OBTAINED. SHE ALSO HAS HISTORY OF ESBL IN HER URINE AND BLOOD. PATIENT IS LETHARGIC AND HAS REQUIRED STERNAL RUB IN ORDER TO WAKE HER. SHE STARTLES FOR A MOMENT, AND GOES RIGHT BACK TO SLEEP. CALLED PATIENTS PHARMACY FOR AN UPDATED MEDICATION LIST AND VERIFIED THAT SHE HAS NOT PICKED UP SOME OF HER MEDS IN A WHILE. PATIENT IS LETHARGIC, LUNGS DIM, AND ON TELE RUNNING NORMAL SINUS RHYTHM. PATIENTS SPOUSE WAS IN ASKING QUESTIONS ABOUT HER CONDITION AND HOW SHE WAS FEELING. WHILE THE PATIENT WAS AWAKE SHE ASKED FOR HER PAIN MEDICATIONS, THE PATIENT HAS BEEN UNABLE TO KEEP HER EYES OPEN FOR MORE THAN 3 SECONDS SINCE SHE HAS GOTTEN TO THE FLOOR. PATIENT HAS LACTATED RINGERS RUNNING @ 75ML/HR AND HAS HAD TWO 20MEQ PIGGYBACKS OF POTASSIUM SINCE SHE HAS ARRIVED. I WAS ABLE TO GET THE PATIENT TO TAKE ONE DOSE OF 40MEQ OF POTASSIUM PO AND SINCE THEN THE PATIENT HAS BEEN UNABLE TO WAKE UP FOR A PERIOD OF TIME. SHE IS UNSAFE TO TAKE HER PO MEDS AT THIS TIME. SHE ARRIVED WITH A WOUND ON HER RLE THAT HAD AN FELICITA BANDAGE AND SOME GAUZE PADS ON. THIS BANDAGE WAS STUCK TO HER LEG AND NEEDED TO BE SOAKED TO BE REMOVED. BANDAGE WAS REMOVED TO REVEAL AN ULCER ON THE SIDE OF HER LEG AND REDRESSED THE WOUND WITH AN ABD PAD AND FELICITA WRAP. WILL CONTINUE TO MONITOR FOR CHANGES IN THE PATIENTS CONDITION. HER VITALS LOOK OKAY, WILL CONTINUE TO ASSESS FOR NEW CHANGES.
[2018-07-26 05:09] LABS: BASOPHILS ABSOLUTE AUTO 0.06 K/mm3 (0.00-0.23); BASOPHILS PERCENT AUTO 1 % (0-2); EOSINOPHILS ABSOLUTE AUTO 0.04 K/mm3 (0.00-0.68); EOSINOPHILS PERCENT AUTO 0 % (0-6); Hematocrit 37.5 % (33.0-51.0); Hemoglobin 12.4 g/dL (11.5-16.0); IMMATURE GRAN ABSOLUTE AUTO 0.04 K/mm3 (0.00-0.10); IMMATURE GRAN PERCENT AUTO 0 % (0-1); LYMPHOCYTES ABSOLUTE AUTO 2.83 K/mm3 (0.84-5.20); LYMPHOCYTES PERCENT AUTO 29 % (21-46); MONOCYTES ABSOLUTE AUTO 0.93 K/mm3 (0.16-1.47); MONOCYTES PERCENT AUTO 10 % (4-13); Mean Corpuscular HGB 33.5 pg (26.0-34.0); Mean Corpuscular HGB Conc 33.1 g/dL (31.5-36.5); NEUTROPHILS ABSOLUTE AUTO 5.78 K/mm3 (1.96-9.15); NEUTROPHILS PERCENT AUTO 60 % (41-73); Platelet Count 178 K/mm3 (150-400); RDW Coefficient Variation 13.1 % (11.7-14.2); RDW Standard Deviation 48.7 fL (35.1-46.3); White Blood Cell Count 9.68 K/mm3 (4.00-11.30)
[2018-07-26 05:19] LABS: Mean Corpuscular Volume 101 fL (80-100)
[2018-07-26 05:25] LABS: Calcium, Blood 8.7 mg/dL (8.5-10.1); Creatinine, Blood 1.27 mg/dL (0.40-1.00); Potassium, Blood 3.1 mmol/L (3.5-5.5)
--- NOTE | 2018-07-26 06:32 | NUR ---
SHIFT SUMMARY PT SLEPT WELL T/O NIGHT. ALERT TO SELF & PLACE. REPORTS FEELING CONFUSED & DISORIENTED, ASKS WHAT DAY IT IS & WHY SHE HAS TO STAY IN THE HOSPITAL. STATES "THE PILLOWS LOOK LIKE PEOPLE SITTING ON THE BENCH, CAN YOU FLATTEN THEM?" VSS. AFREBRILE T/O NIGHT, DENIES CHILLS, N/V, OR SOB. SPO2 @ 98% ON 2L TURNED O2 DOWN TO 1L. PT REPORTS CONSTANT 8/10 PAIN IN RLE, MEDICATED 1X W/DILAUDID PER ORDERS. CHEM BG LAST NIGHT @349, CALLED HOSPITALIST FERN & HE ORDERED 1X DOSE OF 8U REGULAR INSULIN. PT REPORTS "FEELING BETTER" THIS AM. CALL LIGHT IN REACH & BED IN LOWEST POSITION.
--- NOTE | 2018-07-26 06:44 | NUR ---
SHIFT SUMMARY PT REPORTS ONLY GETTING ROUGHLY 1 HOUR OF SLEEP T/O NIGHT. AOX4. AFEBRILE, PER YARN WASHER MONITOR SINUS TACH W/HR 115, RR 24-28, SPO2 @100% ON 2L. PT REPORTS SOB EVEN AFTER RECIEVING SCHEDULED BREATHING TX T/O NIGHT. PT TRI-PODING ON SIDE OF BED W/LABOURED BREATHING. PT REPORTS FEELING ANXIOUS DUE TO NOT BEING ABLE TO BREATH. DISCUSSED W/DR THOMAS PTS SOB THIS AM & HE INFORMED ME HE ORDERED BIPAP/CHEST XRAY, ALSO ASKED FOR SOME PRN ATIVAN TO HELP RELAX. HEPARIN DRIP RUNNING PER PHARMACY ORDERS. CALL LIGHT IN REACH & @ BEDSIDE.
--- NOTE | 2018-07-26 18:36 | NUR ---
SHIFT SUMMARY PATIENT MORE PLEASANT TODAY. SHE DENIES PAIN DURING ASSESSMENT. SHE HAS BEEN AWAKE FOR SHORT PERIODS TODAY. SHE PULLED HER IV ON ACCIDENT THERE IS A NEW 22G IN HER RIGHT UPPER ARM. POTENTIAL DISCHARGE TOMORROW.
--- NOTE | 2018-07-27 04:54 | NUR ---
SHIFT SUMMARY PT SLEPT WELL T/O NIGHT. AOX3, FORGETFUL @TIMES. VSS. PT DENIES SOB, CHILLS OR N/V. PT REPORTS 02/27 RLE WOUND/FOOT, MEDICATED 2X W/DILAUDID PER ORDERS. CHEM BG 330 @HS & PT MEDICATED W/10U LANTUS PER ORDERS. RLE WOUND DRESSING WAS CHANGED, SCANT AMOUNT PURULENT DRAINAGE NOTED, DRESSING IS C/D/I. CALL LIGHT IS IN REACH & BED IS IN LOWEST POSITION.
[2018-07-27 05:22] LABS: BASOPHILS ABSOLUTE AUTO 0.06 K/mm3 (0.00-0.23); BASOPHILS PERCENT AUTO 1 % (0-2); EOSINOPHILS ABSOLUTE AUTO 0.11 K/mm3 (0.00-0.68); EOSINOPHILS PERCENT AUTO 1 % (0-6); Hematocrit 38.3 % (33.0-51.0); Hemoglobin 12.7 g/dL (11.5-16.0); IMMATURE GRAN ABSOLUTE AUTO 0.06 K/mm3 (0.00-0.10); IMMATURE GRAN PERCENT AUTO 1 % (0-1); LYMPHOCYTES ABSOLUTE AUTO 3.12 K/mm3 (0.84-5.20); LYMPHOCYTES PERCENT AUTO 34 % (21-46); MONOCYTES ABSOLUTE AUTO 0.84 K/mm3 (0.16-1.47); MONOCYTES PERCENT AUTO 9 % (4-13); Mean Corpuscular HGB 33.3 pg (26.0-34.0); Mean Corpuscular HGB Conc 33.2 g/dL (31.5-36.5); Mean Corpuscular Volume 101 fL (80-100); Mean Platelet Volume 11.4 fL (9.1-12.4); NEUTROPHILS PERCENT AUTO 54 % (41-73); Platelet Count 187 K/mm3 (150-400); RDW Coefficient Variation 13.2 % (11.7-14.2); RDW Standard Deviation 48.9 fL (35.1-46.3); Red Blood Cell Count 3.81 M/mm3 (3.80-5.20); White Blood Cell Count 9.19 K/mm3 (4.00-11.30)
[2018-07-27 05:38] LABS: Calcium, Blood 9.1 mg/dL (8.5-10.1); Creatinine, Blood 1.26 mg/dL (0.40-1.00); Potassium, Blood 4.3 mmol/L (3.5-5.5)
[2018-07-27] MEDS ORDERED: HUMALOG KW200 UNIT/1 (11:39)
[2018-07-27] MEDS ORDERED: CIPR500 PO (11:45)
[2018-07-27] MEDS ORDERED: Micro-K10 MEQ PO (11:45)
[2018-07-27] MEDS ORDERED: INSULANPEN SC (11:46)
--- NOTE | 2018-07-27 15:36 | NUR ---
DISCHARGE NOTE- PT WAS GIVEN VERBAL AND WRITTEN DISCHARGE INSTRUCTIONS AND ACKNOWLEDGED UNDERSTANDING OF THEM. IV AND TELE DC'D PRIOR TO DISCHARGE. PT SPOUSE PICKED HER UP AND TOOK HER HOME BY CAR. NO FURTHER QUESTIONS AT THE TIME OF DISCHARGE.
== END 2018-07-27 13:25 | disposition home or self-care (01) | DRG 690 ==
LOC: ER 09:06 → MEDS 10:58 → ENPENDDIS 07-27 10:00 → MEDS 07-27 13:25
PROVIDERS: Emergency Medicine; ADMIT Hospitalist
DX: N39.0 Urinary tract infection, site not specified (principal); G93.40 Encephalopathy, unspecified; D68.61 Antiphospholipid syndrome; E87.6 Hypokalemia; B96.20 Unspecified Escherichia coli [E. coli] as the cause of diseases classified elsewhere; Z16.12 Extended spectrum beta lactamase (ESBL) resistance; G89.29 Other chronic pain; M79.606 Pain in leg, unspecified; K21.9 Gastro-esophageal reflux disease without esophagitis; M94.8X9 Other specified disorders of cartilage, unspecified sites; I77.6 Arteritis, unspecified; M79.7 Fibromyalgia; E78.5 Hyperlipidemia, unspecified; I12.9 Hypertensive chronic kidney disease with stage 1 through stage 4 chronic kidney disease, or unspecified chronic kidney disease; N18.3 Chronic kidney disease, stage 3 (moderate); E11.22 Type 2 diabetes mellitus with diabetic chronic kidney disease; Z79.4 Long term (current) use of insulin; Z79.84 Long term (current) use of oral hypoglycemic drugs; Z79.899 Other long term (current) drug therapy; Z79.52 Long term (current) use of systemic steroids; Z86.14 Personal history of Methicillin resistant Staphylococcus aureus infection; Z87.891 Personal history of nicotine dependence
CPT/HCPCS: 36415; 71045; 80048; 80053; 81001; 82947; 85025; 87077; 87086; 87186; 93005; 93010; 96365; 96367; 96376; 99285-25; J0696; J1815; J3480; J7030; J7050; J7120; P9612

== ENCOUNTER 2018-08-06 08:23 | Inpatient (IN) | payer MEDICARE, OTHER ==
[~2018-08-06] VITALS: Ht 154.9 cm; Wt 78.5 kg
[~2018-08-06 08:23] MED LIST changes: +B-1100 MG PO; +CIPR500 PO; +HUMALOG KW200 UNIT/1; +Novolin R100 UNIT/M SC
[2018-08-06 09:08] LABS: Hematocrit 36.8 % (33.0-51.0); Hemoglobin 13.4 g/dL (11.5-16.0); Red Blood Cell Count 3.94 M/mm3 (3.80-5.20); White Blood Cell Count 12.62 K/mm3 (4.00-11.30)
[2018-08-06 09:09] LABS: BASOPHILS ABSOLUTE AUTO 0.06 K/mm3 (0.00-0.23); BASOPHILS PERCENT AUTO 1 % (0-2); EOSINOPHILS PERCENT AUTO 1 % (0-6); IMMATURE GRAN ABSOLUTE AUTO 0.06 K/mm3 (0.00-0.10); IMMATURE GRAN PERCENT AUTO 1 % (0-1); LYMPHOCYTES PERCENT AUTO 28 % (21-46); MONOCYTES ABSOLUTE AUTO 1.51 K/mm3 (0.16-1.47); MONOCYTES PERCENT AUTO 12 % (4-13); Mean Corpuscular HGB Conc 36.4 g/dL (31.5-36.5); Mean Corpuscular Volume 93 fL (80-100); Mean Platelet Volume 10.6 fL (9.1-12.4); NEUTROPHILS ABSOLUTE AUTO 7.39 K/mm3 (1.96-9.15); NEUTROPHILS PERCENT AUTO 59 % (41-73); Platelet Count 279 K/mm3 (150-400); RDW Coefficient Variation 12.1 % (11.7-14.2); RDW Standard Deviation 41.7 fL (35.1-46.3)
[2018-08-06 09:54] LABS: Albumin, Blood 3.2 g/dL (3.4-5.0); Bilirubin, Total 0.9 mg/dL (0.1-1.0); Bun/Creatinine Ratio 27.3 (12.0-20.0); Calcium, Blood 9.7 mg/dL (8.5-10.1); Creatinine, Blood 1.83 mg/dL (0.40-1.00); Globulin, Blood 3.3 g/dL (2.2-4.0); Potassium, Blood 2.3 mmol/L (3.5-5.5); Total Protein, Blood 6.5 g/dL (6.4-8.2)
--- NOTE | 2018-08-06 12:37 | NUR ---
PT ORIENTED TO ROOM; FREQUENT NURSE ROUNDING EXPLAINED. BED LOW AND IN LOCKED POSITION; CALL LIGHT WITHIN REACH. SBA TO BSC.
--- NOTE | 2018-08-06 18:23 | NUR ---
SHIFT SUMMARY ADMIT THIS SHIFT FROM E.D. A AND OX3 SLOW TO RESPOND AT TIMES; DEAF IN LEFT EAR. DEL CASTILLO PATIENT; RENAL DIET. CHRONIC PAIN. SBA TO BSC ONLY AMBULATES SHORT DISTANCES WHILE AT HOME. CORRECTING ELECTROLYTE IMBALANCES AND TREATING UTI; RECENT ADMIT FOR SAME; LIVES AT HOME WITH . TAKES ELIQUIS.
[2018-08-07 03:45] LABS: Source, Urine Voided
[2018-08-07 03:46] LABS: Bilirubin, Urine Neg (Neg); Blood, Urine 1+ (Neg); Glucose Qualitative, Urine Neg (Neg); Ketones, Urine Neg (Neg); Leukocyte Esterase, Urine 2+ (Neg); Nitrite, Urine Neg (Neg); Protein, Urine Neg (Neg); Urobilinogen, Urine NORM (Normal)
[2018-08-07 03:52] LABS: Appearance, Urine Hazy (Clear); Color, Urine Pale Yellow (P-Yellow)
[2018-08-07 03:53] LABS: Bacteria Few /hpf; Red Blood Cells, Urine 0-2 /hpf (0-2); Squamous Epithelial Cells Few /hpf (Few); White Blood Cells, Urine 50-100 /hpf (0-5)
[2018-08-07 05:06] LABS: BASOPHILS ABSOLUTE AUTO 0.07 K/mm3 (0.00-0.23); BASOPHILS PERCENT AUTO 1 % (0-2); EOSINOPHILS ABSOLUTE AUTO 0.08 K/mm3 (0.00-0.68); EOSINOPHILS PERCENT AUTO 1 % (0-6); Hematocrit 34.6 % (33.0-51.0); Hemoglobin 11.8 g/dL (11.5-16.0); IMMATURE GRAN ABSOLUTE AUTO 0.05 K/mm3 (0.00-0.10); IMMATURE GRAN PERCENT AUTO 1 % (0-1); LYMPHOCYTES ABSOLUTE AUTO 2.38 K/mm3 (0.84-5.20); LYMPHOCYTES PERCENT AUTO 27 % (21-46); MONOCYTES ABSOLUTE AUTO 1.03 K/mm3 (0.16-1.47); MONOCYTES PERCENT AUTO 12 % (4-13); Mean Corpuscular HGB Conc 34.1 g/dL (31.5-36.5); Mean Corpuscular Volume 97 fL (80-100); NEUTROPHILS ABSOLUTE AUTO 5.24 K/mm3 (1.96-9.15); NEUTROPHILS PERCENT AUTO 59 % (41-73); Platelet Count 233 K/mm3 (150-400); RDW Coefficient Variation 12.5 % (11.7-14.2); RDW Standard Deviation 43.9 fL (35.1-46.3); Red Blood Cell Count 3.58 M/mm3 (3.80-5.20); White Blood Cell Count 8.85 K/mm3 (4.00-11.30)
[2018-08-07 05:47] LABS: Magnesium, Blood 2.3 mg/dL (1.6-2.4)
[2018-08-07 05:55] LABS: Albumin, Blood 2.9 g/dL (3.4-5.0); Bilirubin, Total 0.8 mg/dL (0.1-1.0); Bun/Creatinine Ratio 29.7 (12.0-20.0); Calcium, Blood 8.8 mg/dL (8.5-10.1); Creatinine, Blood 1.48 mg/dL (0.40-1.00); Globulin, Blood 2.8 g/dL (2.2-4.0); Potassium, Blood 2.3 mmol/L (3.5-5.5); Total Protein, Blood 5.7 g/dL (6.4-8.2)
--- NOTE | 2018-08-07 06:47 | NUR ---
SHIFT SUMMARY PT A/O SBA TO BSC. HAD BM LAST EVENING. C/O PAIN ONCE IN R LEG AND MEDICATED PER EMAR. 2L O2 NC. SHE WAS ABLE TO SLEEP THROUGH THE NIGHT. CALL LIGHT IN REACH
--- NOTE | 2018-08-07 11:14 | NUR ---
Spiritual care visit conducted. Patient welcomed me into the room. Patient was quick to mention that she was nervous about the uncertainty of her diagnosis. I conducted a life review, normalized her experience, listened empathically, provided anxiety containment and provided prayer. Patient showed signs of restored elodia and a reduction in stress. Patient thanked me for the visit.
--- NOTE | 2018-08-07 18:17 | NUR ---
SHIFT SUMMARY PATIENT HAS BEEN GIVEN 80 MEQ OF POTASSIUM IV TODAY, WILL HAVE LABS REDRAWN TOMORROW AM. WILL CONTINUE TO MONITOR FOR ANY CHANGES. PATIENT HAS BEEN ALERT TODAY. SHE HAS HAD SILVADENE CREAM PLACED ON HER LEG. WILL REASSESS FOR ANY CHNAGES.
[2018-08-08 04:44] LABS: BASOPHILS ABSOLUTE AUTO 0.05 K/mm3 (0.00-0.23); BASOPHILS PERCENT AUTO 1 % (0-2); EOSINOPHILS ABSOLUTE AUTO 0.08 K/mm3 (0.00-0.68); EOSINOPHILS PERCENT AUTO 1 % (0-6); Hemoglobin 11.6 g/dL (11.5-16.0); IMMATURE GRAN ABSOLUTE AUTO 0.04 K/mm3 (0.00-0.10); IMMATURE GRAN PERCENT AUTO 0 % (0-1); LYMPHOCYTES ABSOLUTE AUTO 3.01 K/mm3 (0.84-5.20); LYMPHOCYTES PERCENT AUTO 30 % (21-46); MONOCYTES ABSOLUTE AUTO 1.08 K/mm3 (0.16-1.47); MONOCYTES PERCENT AUTO 11 % (4-13); Mean Corpuscular HGB 33.4 pg (26.0-34.0); Mean Corpuscular HGB Conc 34.1 g/dL (31.5-36.5); Mean Corpuscular Volume 98 fL (80-100); NEUTROPHILS ABSOLUTE AUTO 5.85 K/mm3 (1.96-9.15); NEUTROPHILS PERCENT AUTO 58 % (41-73); Platelet Count 225 K/mm3 (150-400); RDW Coefficient Variation 12.6 % (11.7-14.2); RDW Standard Deviation 45.1 fL (35.1-46.3); Red Blood Cell Count 3.47 M/mm3 (3.80-5.20); White Blood Cell Count 10.11 K/mm3 (4.00-11.30)
[2018-08-08 05:02] LABS: Albumin, Blood 2.7 g/dL (3.4-5.0); Albumin/Globulin Ratio 0.9 (0.8-1.8); Bilirubin, Total 0.6 mg/dL (0.1-1.0); Calcium, Blood 9.1 mg/dL (8.5-10.1); Creatinine, Blood 1.4 mg/dL (0.40-1.00); Magnesium, Blood 2.2 mg/dL (1.6-2.4); Total Protein, Blood 5.7 g/dL (6.4-8.2)
--- NOTE | 2018-08-08 05:50 | NUR ---
SHIFT SUMMARY: PT IS ALERT AND ORIENTED, SLIGHTLY LETHARGIC. PT IS CALM AND COOPERATIVE WITH CARE. PT CALLS APPROPRIATELY. PT IS A ONE PERSON ASSIST TO THE BSC. PT REPORTS RLE PAIN, MEDICATING PER EMAR. PT REPORTS INTERMITTENT SOB, O2 2 L VIA NC KEEPING SATS> 90%. PT DENIES NAUSEA AND VOMITING. PT SLEPT MUCH OF THE NIGHT WHEN NOT DISTURBED. NO ACUTE CHANGES OR COMPLICATIONS THIS SHIFT. BED IN LOW POSITION, CALL LIGHT WITHIN REACH. WILL REPORT TO DAY NURSE.
--- NOTE | 2018-08-08 12:01 | NUR ---
DISCHARGE SUMMARY INFORMATION GIVEN TO THE PATIENT AND HER SPOUSE. NO ACUTE CONCERNS AT THIS TIME. ALL MEDICATIONS HAVE BEEN SENT TO THE PHARMACY. PATIENT WHEELED OUT BY FAMILY MEMBER. IV WAS REMOVED PRIOR TO DISCHARGE.
== END 2018-08-08 11:54 | disposition home or self-care (01) | DRG 640 ==
LOC: ER 08:23 → MEDS 10:56 → ENPENDDIS 08-08 10:14 → MEDS 08-08 11:54
PROVIDERS: Emergency Medicine; ADMIT Internal Medicine
DX: E87.1 Hypo-osmolality and hyponatremia (principal); N00.9 Acute nephritic syndrome with unspecified morphologic changes; N17.9 Acute kidney failure, unspecified; D68.61 Antiphospholipid syndrome; E11.621 Type 2 diabetes mellitus with foot ulcer; E86.0 Dehydration; E87.6 Hypokalemia; Z79.4 Long term (current) use of insulin; R09.02 Hypoxemia; K21.9 Gastro-esophageal reflux disease without esophagitis; E78.5 Hyperlipidemia, unspecified; I12.9 Hypertensive chronic kidney disease with stage 1 through stage 4 chronic kidney disease, or unspecified chronic kidney disease; E11.22 Type 2 diabetes mellitus with diabetic chronic kidney disease; N18.9 Chronic kidney disease, unspecified; Z87.891 Personal history of nicotine dependence; R11.2 Nausea with vomiting, unspecified; I95.2 Hypotension due to drugs; T40.605A Adverse effect of unspecified narcotics, initial encounter
CPT/HCPCS: 36415; 71046; 80053; 81001; 82947; 83690; 83735; 83880; 85025; 87077; 87081; 87086; 87186; 94762; 96361; 96365; 96368; 97110; 97162; 97530; 99285-25; J3475; J3480; J7030; J7050; P9612

== ENCOUNTER 2018-12-03 10:10 | Emergency (ER) | payer MEDICARE, OTHER ==
[~2018-12-03] VITALS: Ht 154.9 cm; Wt 81.7 kg
== END 2018-12-03 13:55 | disposition home or self-care (01) ==
LOC: ER 10:10
DX: S51.011A Laceration without foreign body of right elbow, initial encounter (principal); S00.33XA Contusion of nose, initial encounter; E11.9 Type 2 diabetes mellitus without complications; I10 Essential (primary) hypertension; Z87.891 Personal history of nicotine dependence; W01.0XXA Fall on same level from slipping, tripping and stumbling without subsequent striking against object, initial encounter
CPT/HCPCS: 12002; 36415; 70450; 99284-25

== ENCOUNTER 2018-12-23 09:55 | Emergency (ER) | payer MEDICARE, OTHER ==
[~2018-12-23] VITALS: Ht 154.9 cm; Wt 81.7 kg
== END 2018-12-23 10:22 | disposition home or self-care (01) ==
LOC: ER 09:55
DX: S41.111D Laceration without foreign body of right upper arm, subsequent encounter (principal); W01.198D Fall on same level from slipping, tripping and stumbling with subsequent striking against other object, subsequent encounter; Z91.048 Other nonmedicinal substance allergy status; Z79.899 Other long term (current) drug therapy; Z79.4 Long term (current) use of insulin; E11.9 Type 2 diabetes mellitus without complications; I10 Essential (primary) hypertension; Z87.891 Personal history of nicotine dependence

== ENCOUNTER 2019-03-02 00:19 | Day surgery (SDC) | payer MEDICARE, OTHER | END 2019-03-02 23:19 | disposition home or self-care (01) | LOC: WOUND 00:19 | DX: E11.622 Type 2 diabetes mellitus with other skin ulcer (principal); L97.812 Non-pressure chronic ulcer of other part of right lower leg with fat layer exposed; L95.9 Vasculitis limited to the skin, unspecified; I10 Essential (primary) hypertension; Z86.14 Personal history of Methicillin resistant Staphylococcus aureus infection | CPT/HCPCS: G0463 ==

== ENCOUNTER 2019-03-12 12:24 | Day surgery (SDC) | payer MEDICARE, OTHER | END 2019-03-12 23:01 | disposition home or self-care (01) | LOC: WOUND 12:24 | DX: E11.622 Type 2 diabetes mellitus with other skin ulcer (principal); L97.812 Non-pressure chronic ulcer of other part of right lower leg with fat layer exposed; E11.621 Type 2 diabetes mellitus with foot ulcer; L97.519 Non-pressure chronic ulcer of other part of right foot with unspecified severity; L95.9 Vasculitis limited to the skin, unspecified | CPT/HCPCS: G0463 ==

== ENCOUNTER 2019-04-03 11:30 | Emergency (ER) | payer MEDICARE, OTHER ==
[~2019-04-03] VITALS: Ht 154.9 cm; Wt 81.7 kg
[2019-04-03] MEDS ORDERED: ALLO100 PO (11:48)
[2019-04-03] MEDS ORDERED: OXYB5 PO (11:49)
[2019-04-03 13:14] LABS: BASOPHILS ABSOLUTE AUTO 0.07 K/mm3 (0.00-0.23); BASOPHILS PERCENT AUTO 1 % (0-2); EOSINOPHILS ABSOLUTE AUTO 0.04 K/mm3 (0.00-0.68); EOSINOPHILS PERCENT AUTO 0 % (0-6); Hematocrit 42.9 % (33.0-51.0); Hemoglobin 14.6 g/dL (11.5-16.0); IMMATURE GRAN ABSOLUTE AUTO 0.08 K/mm3 (0.00-0.10); IMMATURE GRAN PERCENT AUTO 1 % (0-1); LYMPHOCYTES ABSOLUTE AUTO 1.24 K/mm3 (0.84-5.20); LYMPHOCYTES PERCENT AUTO 11 % (21-46); MONOCYTES ABSOLUTE AUTO 0.81 K/mm3 (0.16-1.47); MONOCYTES PERCENT AUTO 8 % (4-13); Mean Corpuscular HGB 34.7 pg (26.0-34.0); Mean Corpuscular Volume 102 fL (80-100); Mean Platelet Volume 10.4 fL (9.1-12.4); NEUTROPHILS ABSOLUTE AUTO 8.63 K/mm3 (1.96-9.15); NEUTROPHILS PERCENT AUTO 79 % (41-73); Platelet Count 174 K/mm3 (150-400); RDW Coefficient Variation 13.9 % (11.7-14.2); RDW Standard Deviation 52.7 fL (35.1-46.3); Red Blood Cell Count 4.21 M/mm3 (3.80-5.20); White Blood Cell Count 10.87 K/mm3 (4.00-11.30)
[2019-04-03 13:31] LABS: Alanine Aminotransfer (ALT/SGP 42 U/L (12-78); Albumin, Blood 3.2 g/dL (3.4-5.0); Albumin/Globulin Ratio 1.1 (0.8-1.8); Alk Phos 98 U/L (50-136); Anion Gap 8 mmol/L (6-16); Aspartate Aminotrans (AST/SGOT 52 U/L (12-37); Blood Urea Nitrogen 19 mg/dL (8-24); Bun/Creatinine Ratio 22.1 (12.0-20.0); CO2, Blood 30 mmol/L (21-32); Calcium, Blood 9.3 mg/dL (8.5-10.1); Chloride, Blood 100 mmol/L (98-108); Creatinine, Blood 0.86 mg/dL (0.40-1.00); Glomerular Filtration Rate >60 (60-); Glucose, Blood 235 mg/dL (70-99); Potassium, Blood 4.2 mmol/L (3.5-5.5); Sodium, Blood 138 mmol/L (136-145); Total Protein, Blood 6.2 g/dL (6.4-8.2); Troponin I <0.015 ng/mL (0.000-0.040)
== END 2019-04-03 15:15 | disposition home or self-care (01) ==
LOC: ER 11:30
PROVIDERS: Physician Assistant
DX: S01.01XA Laceration without foreign body of scalp, initial encounter (principal); G89.11 Acute pain due to trauma; R07.89 Other chest pain; L53.9 Erythematous condition, unspecified; E11.9 Type 2 diabetes mellitus without complications; I10 Essential (primary) hypertension; Z87.891 Personal history of nicotine dependence; Z91.048 Other nonmedicinal substance allergy status; Z79.899 Other long term (current) drug therapy; Z79.01 Long term (current) use of anticoagulants; Z79.4 Long term (current) use of insulin; W01.10XA Fall on same level from slipping, tripping and stumbling with subsequent striking against unspecified object, initial encounter
CPT/HCPCS: 12002; 70450; 71046; 72125; 80053; 84484; 85025; 93005; 93010; 96361-59; 96374-59; 99285-25; J1170; J7030

== ENCOUNTER 2019-04-05 00:18 | Day surgery (SDC) | payer MEDICARE, OTHER ==
[~2019-04-05 00:18] MED LIST changes: +OXYB5 PO
== END 2019-04-05 22:50 | disposition home or self-care (01) ==
LOC: WOUND 00:18
DX: E11.621 Type 2 diabetes mellitus with foot ulcer (principal); L97.529 Non-pressure chronic ulcer of other part of left foot with unspecified severity; E11.622 Type 2 diabetes mellitus with other skin ulcer; L97.812 Non-pressure chronic ulcer of other part of right lower leg with fat layer exposed; L97.822 Non-pressure chronic ulcer of other part of left lower leg with fat layer exposed; I10 Essential (primary) hypertension; L95.9 Vasculitis limited to the skin, unspecified
CPT/HCPCS: G0463

== ENCOUNTER 2019-04-13 07:50 | Emergency (ER) | payer MEDICARE, OTHER ==
[~2019-04-13] VITALS: Ht 154.9 cm; Wt 81.7 kg
== END 2019-04-13 09:37 | disposition home or self-care (01) ==
LOC: ER 07:50
DX: S82.831A Other fracture of upper and lower end of right fibula, initial encounter for closed fracture (principal); E11.9 Type 2 diabetes mellitus without complications; I10 Essential (primary) hypertension; K21.9 Gastro-esophageal reflux disease without esophagitis; Z87.891 Personal history of nicotine dependence; Z91.048 Other nonmedicinal substance allergy status; Z79.899 Other long term (current) drug therapy; Z79.01 Long term (current) use of anticoagulants; Z79.4 Long term (current) use of insulin; W06.XXXA Fall from bed, initial encounter
CPT/HCPCS: 29505; 73590; 99283-25

== ENCOUNTER 2019-04-18 10:11 | Emergency (ER) | payer MEDICARE, OTHER ==
[~2019-04-18] VITALS: Ht 154.9 cm; Wt 80.7 kg
== END 2019-04-18 11:38 | disposition home or self-care (01) ==
LOC: ER 10:11
DX: S01.91XD Laceration without foreign body of unspecified part of head, subsequent encounter (principal); E11.9 Type 2 diabetes mellitus without complications; K21.9 Gastro-esophageal reflux disease without esophagitis; I10 Essential (primary) hypertension; Z87.891 Personal history of nicotine dependence; Z46.89 Encounter for fitting and adjustment of other specified devices; Z91.048 Other nonmedicinal substance allergy status; Z79.899 Other long term (current) drug therapy; Z79.01 Long term (current) use of anticoagulants; Z79.4 Long term (current) use of insulin; X58.XXXD Exposure to other specified factors, subsequent encounter
CPT/HCPCS: 29515; 99281-25

== ENCOUNTER 2019-05-10 10:39 | Day surgery (SDC) | payer MEDICARE, OTHER | END 2019-05-10 22:53 | disposition home or self-care (01) | LOC: WOUND 10:39 | DX: E11.622 Type 2 diabetes mellitus with other skin ulcer (principal); L97.812 Non-pressure chronic ulcer of other part of right lower leg with fat layer exposed; I87.2 Venous insufficiency (chronic) (peripheral); L95.9 Vasculitis limited to the skin, unspecified; I10 Essential (primary) hypertension; Z79.01 Long term (current) use of anticoagulants; Z79.899 Other long term (current) drug therapy; Z79.4 Long term (current) use of insulin ==

== ENCOUNTER 2019-05-27 10:18 | Day surgery (SDC) | payer MEDICARE, OTHER | END 2019-05-27 23:06 | disposition home or self-care (01) | LOC: WOUND 10:18 | DX: E11.621 Type 2 diabetes mellitus with foot ulcer (principal); E11.622 Type 2 diabetes mellitus with other skin ulcer; L97.521 Non-pressure chronic ulcer of other part of left foot limited to breakdown of skin; L97.821 Non-pressure chronic ulcer of other part of left lower leg limited to breakdown of skin; E11.40 Type 2 diabetes mellitus with diabetic neuropathy, unspecified; I10 Essential (primary) hypertension; L95.9 Vasculitis limited to the skin, unspecified; I87.2 Venous insufficiency (chronic) (peripheral) ==

== ENCOUNTER 2019-05-31 10:49 | Day surgery (SDC) | payer MEDICARE, OTHER | END 2019-05-31 22:39 | disposition home or self-care (01) | LOC: WOUND 10:49 | DX: E11.621 Type 2 diabetes mellitus with foot ulcer (principal); E11.622 Type 2 diabetes mellitus with other skin ulcer; L97.812 Non-pressure chronic ulcer of other part of right lower leg with fat layer exposed; I10 Essential (primary) hypertension; L97.529 Non-pressure chronic ulcer of other part of left foot with unspecified severity; L95.9 Vasculitis limited to the skin, unspecified; I87.2 Venous insufficiency (chronic) (peripheral); Z79.4 Long term (current) use of insulin; Z79.01 Long term (current) use of anticoagulants; Z79.899 Other long term (current) drug therapy ==

== ENCOUNTER 2019-06-07 11:01 | Day surgery (SDC) | payer MEDICARE, OTHER | END 2019-06-07 22:48 | disposition home or self-care (01) | LOC: WOUND 11:01 | DX: E11.621 Type 2 diabetes mellitus with foot ulcer (principal); E11.622 Type 2 diabetes mellitus with other skin ulcer; L97.812 Non-pressure chronic ulcer of other part of right lower leg with fat layer exposed; L97.522 Non-pressure chronic ulcer of other part of left foot with fat layer exposed; L95.9 Vasculitis limited to the skin, unspecified; I87.2 Venous insufficiency (chronic) (peripheral); I10 Essential (primary) hypertension; Z79.4 Long term (current) use of insulin; Z79.899 Other long term (current) drug therapy; Z79.01 Long term (current) use of anticoagulants ==

== ENCOUNTER 2019-06-14 10:46 | Day surgery (SDC) | payer MEDICARE, OTHER | END 2019-06-14 22:59 | disposition home or self-care (01) | LOC: WOUND 10:46 | DX: E11.621 Type 2 diabetes mellitus with foot ulcer (principal); E11.622 Type 2 diabetes mellitus with other skin ulcer; L97.812 Non-pressure chronic ulcer of other part of right lower leg with fat layer exposed; L97.529 Non-pressure chronic ulcer of other part of left foot with unspecified severity; L95.9 Vasculitis limited to the skin, unspecified; I87.2 Venous insufficiency (chronic) (peripheral); Z79.4 Long term (current) use of insulin; Z79.899 Other long term (current) drug therapy | CPT/HCPCS: Q4196 ==

== ENCOUNTER 2019-06-21 10:45 | Day surgery (SDC) | payer MEDICARE, OTHER | END 2019-06-21 23:00 | disposition home or self-care (01) | LOC: WOUND 10:45 | DX: E11.621 Type 2 diabetes mellitus with foot ulcer (principal); L97.522 Non-pressure chronic ulcer of other part of left foot with fat layer exposed; L97.512 Non-pressure chronic ulcer of other part of right foot with fat layer exposed; E11.52 Type 2 diabetes mellitus with diabetic peripheral angiopathy with gangrene; I96 Gangrene, not elsewhere classified; E11.40 Type 2 diabetes mellitus with diabetic neuropathy, unspecified; D68.61 Antiphospholipid syndrome; I10 Essential (primary) hypertension; I87.2 Venous insufficiency (chronic) (peripheral); I77.6 Arteritis, unspecified; D64.9 Anemia, unspecified; M10.9 Gout, unspecified; Z79.4 Long term (current) use of insulin; Z79.899 Other long term (current) drug therapy; Z91.048 Other nonmedicinal substance allergy status | CPT/HCPCS: Q4196 ==

== ENCOUNTER 2019-06-28 10:39 | Day surgery (SDC) | payer MEDICARE, OTHER | END 2019-06-28 22:38 | disposition home or self-care (01) | LOC: WOUND 10:39 | DX: E11.621 Type 2 diabetes mellitus with foot ulcer (principal); E11.622 Type 2 diabetes mellitus with other skin ulcer; L97.522 Non-pressure chronic ulcer of other part of left foot with fat layer exposed; L97.812 Non-pressure chronic ulcer of other part of right lower leg with fat layer exposed; I10 Essential (primary) hypertension; B95.62 Methicillin resistant Staphylococcus aureus infection as the cause of diseases classified elsewhere; L95.9 Vasculitis limited to the skin, unspecified; I87.2 Venous insufficiency (chronic) (peripheral); Z79.4 Long term (current) use of insulin; Z79.899 Other long term (current) drug therapy; Z79.01 Long term (current) use of anticoagulants ==

== ENCOUNTER 2019-07-19 10:47 | Day surgery (SDC) | payer MEDICARE, OTHER | END 2019-07-19 22:51 | disposition home or self-care (01) | LOC: WOUND 10:47 | DX: E11.621 Type 2 diabetes mellitus with foot ulcer (principal); L97.522 Non-pressure chronic ulcer of other part of left foot with fat layer exposed; L97.512 Non-pressure chronic ulcer of other part of right foot with fat layer exposed; E11.52 Type 2 diabetes mellitus with diabetic peripheral angiopathy with gangrene; I96 Gangrene, not elsewhere classified; D68.61 Antiphospholipid syndrome; I10 Essential (primary) hypertension; L95.9 Vasculitis limited to the skin, unspecified; I87.2 Venous insufficiency (chronic) (peripheral); Z79.4 Long term (current) use of insulin; Z79.899 Other long term (current) drug therapy; Z91.048 Other nonmedicinal substance allergy status; D64.9 Anemia, unspecified; E11.40 Type 2 diabetes mellitus with diabetic neuropathy, unspecified; M10.9 Gout, unspecified ==

== ENCOUNTER 2019-08-02 00:18 | Day surgery (SDC) | payer MEDICARE, OTHER | END 2019-08-02 22:40 | disposition home or self-care (01) | LOC: WOUND 00:18 | DX: E11.621 Type 2 diabetes mellitus with foot ulcer (principal); L97.812 Non-pressure chronic ulcer of other part of right lower leg with fat layer exposed; L97.529 Non-pressure chronic ulcer of other part of left foot with unspecified severity; L95.9 Vasculitis limited to the skin, unspecified; I87.2 Venous insufficiency (chronic) (peripheral); D68.61 Antiphospholipid syndrome; I10 Essential (primary) hypertension; Z91.048 Other nonmedicinal substance allergy status; Z79.01 Long term (current) use of anticoagulants; Z79.4 Long term (current) use of insulin; Z79.899 Other long term (current) drug therapy; Z51.5 Encounter for palliative care | CPT/HCPCS: G0463 ==

== ENCOUNTER 2019-08-13 08:23 | Inpatient (IN) | payer MEDICARE, OTHER ==
[~2019-08-13] VITALS: Ht 167.6 cm; Wt 71.5 kg
[2019-08-13 08:50] LABS: Source, Urine Catheter
[2019-08-13] MEDS ORDERED: WARF5 PO (08:55)
[2019-08-13] MEDS ORDERED: CYAN500 PO (08:56)
[2019-08-13] MEDS ORDERED: DULO30 PO (08:56)
[2019-08-13] MEDS ORDERED: Novolin R100 UNIT/M SC ×2 (08:57→13:31)
[2019-08-13] MEDS ORDERED: PROLIA60 MG/1 ML SQ (08:58)
[2019-08-13] MEDS ORDERED: ATOR80 PO (09:00)
[2019-08-13] MEDS ORDERED: CREON DR 12,001 EACH PO (09:01)
[2019-08-13 09:03] LABS: Appearance, Urine Hazy (Clear); Bilirubin, Urine Neg (Neg); Blood, Urine 3+ (Neg); Color, Urine Yellow (P-Yellow); Glucose Qualitative, Urine Neg (Neg); Ketones, Urine 1+ (Neg); Leukocyte Esterase, Urine 3+ (Neg); Nitrite, Urine Pos (Neg); Protein, Urine 3+ (Neg); Urobilinogen, Urine 2+ (Normal)
[2019-08-13] MEDS ORDERED: PREG100 (09:03)
[2019-08-13] MEDS ORDERED: HYDMOR2 (09:03)
[2019-08-13] MEDS ORDERED: MAGNESIUM OXID500 MG PO ×2 (09:05→13:37)
[2019-08-13] MEDS ORDERED: INSULANPEN SC (09:05)
[2019-08-13 09:06] LABS: BASOPHILS ABSOLUTE AUTO 0.07 K/mm3 (0.00-0.23); BASOPHILS PERCENT AUTO 1 % (0-2); EOSINOPHILS ABSOLUTE AUTO 0.02 K/mm3 (0.00-0.68); EOSINOPHILS PERCENT AUTO 0 % (0-6); Hematocrit 43.3 % (33.0-51.0); Hemoglobin 14.4 g/dL (11.5-16.0); IMMATURE GRAN ABSOLUTE AUTO 0.07 K/mm3 (0.00-0.10); IMMATURE GRAN PERCENT AUTO 1 % (0-1); LYMPHOCYTES ABSOLUTE AUTO 2.58 K/mm3 (0.84-5.20); LYMPHOCYTES PERCENT AUTO 17 % (21-46); MONOCYTES ABSOLUTE AUTO 1.22 K/mm3 (0.16-1.47); MONOCYTES PERCENT AUTO 8 % (4-13); Mean Corpuscular HGB 33.3 pg (26.0-34.0); Mean Corpuscular HGB Conc 33.3 g/dL (31.5-36.5); Mean Corpuscular Volume 100 fL (80-100); Mean Platelet Volume 10.4 fL (9.1-12.4); NEUTROPHILS ABSOLUTE AUTO 11.03 K/mm3 (1.96-9.15); NEUTROPHILS PERCENT AUTO 74 % (41-73); Platelet Count 181 K/mm3 (150-400); RDW Coefficient Variation 13.4 % (11.7-14.2); RDW Standard Deviation 49.3 fL (35.1-46.3); Red Blood Cell Count 4.32 M/mm3 (3.80-5.20); White Blood Cell Count 14.99 K/mm3 (4.00-11.30)
[2019-08-13] MEDS ORDERED: PRED5 PO (09:06)
[2019-08-13 09:09] LABS: Alanine Aminotransfer (ALT/SGP 38 U/L (12-78); Albumin, Blood 2.7 g/dL (3.4-5.0); Albumin/Globulin Ratio 0.9 (0.8-1.8); Alk Phos 102 U/L (50-136); Anion Gap 6 mmol/L (6-16); Aspartate Aminotrans (AST/SGOT 45 U/L (12-37); Bilirubin, Total 1.6 mg/dL (0.1-1.0); Blood Urea Nitrogen 15 mg/dL (8-24); Bun/Creatinine Ratio 15.5 (12.0-20.0); CO2, Blood 29 mmol/L (21-32); Calcium, Blood 8.2 mg/dL (8.5-10.1); Chloride, Blood 103 mmol/L (98-108); Creatinine, Blood 0.97 mg/dL (0.40-1.00); Glomerular Filtration Rate >60 (60-); Glucose, Blood 152 mg/dL (70-99); Potassium, Blood 3.6 mmol/L (3.5-5.5); Sodium, Blood 138 mmol/L (136-145); Total Protein, Blood 5.7 g/dL (6.4-8.2)
[2019-08-13 09:16] LABS: Bacteria Mod /hpf; Red Blood Cells, Urine TNTC /hpf (0-2); Squamous Epithelial Cells Few /hpf (Few); White Blood Cells, Urine TNTC /hpf (0-5)
[2019-08-13] MEDS ORDERED: Oxybutynin Chlor5 M1 PO (11:41)
[2019-08-13 12:21] LABS: International Normalized Ratio 1.72; Prothrombin Time Results 17.8 Sec (9.7-11.5)
--- NOTE | 2019-08-13 12:25 | NUR ---
PT ARRIVED TO THE MEDICAL FLOOR FROM THE ER A/OX3, PLEASANT AND COOPERATIVE, VIA STRETCHER, PT PT APPEARS TO BE BREATHING EASILY AT THIS TIME ON RA, SWABS WERE COLLECTED FOR MRSA CLEARANCE, THE PT REPORTED PAIN ALL OVER, WILL MEDICATE FOR PAIN, PT GAVE PERMISSION TO PHOTOGRAPH HER RIGHT FOOT, PT WAS ORIENTED TO THE ROOM LAYOUT AND CALL SYSTEM, CALL LIGHT IN REACH
[2019-08-13] MEDS ORDERED: HYDMOR2 PO (13:35)
[2019-08-13] MEDS ORDERED: ELIQUIS5 MG PO (13:36)
[2019-08-13] MEDS ORDERED: Hair, Skin & N1 EACH PO (13:41)
[2019-08-13] MEDS ORDERED: VITAMIN D31000 UNI1 PO (13:42)
--- NOTE | 2019-08-13 17:06 | NUR ---
PT IS A/OX3, PLEASANT AND COOPERATIVE, THE PT IS ABLE TO GET UP WITH ASSIST TO THE BSC, PT IS DUSKY IN COLOR, THE PT APPEARS TO BE BREATHING EASILY ON RA AT THIS TIME, THE PT WAS MEDICATED FOR CHRONIC PAIN X1 SO FAR TODAY, PT HAS MULTIPLE SCABED OVER WOUNDS SCATTERED ACROSS HER BODY, PT WAS SWABED FOR MRSA AND ESBL CLEARING, CALL LIGHT IN REACH WILL CONTINUE TO MONITOR AND ASSESS FOR CHANGES
[2019-08-14 05:02] LABS: BASOPHILS ABSOLUTE AUTO 0.05 K/mm3 (0.00-0.23); BASOPHILS PERCENT AUTO 1 % (0-2); EOSINOPHILS PERCENT AUTO 1 % (0-6); Hematocrit 38.6 % (33.0-51.0); Hemoglobin 12.8 g/dL (11.5-16.0); IMMATURE GRAN ABSOLUTE AUTO 0.02 K/mm3 (0.00-0.10); IMMATURE GRAN PERCENT AUTO 0 % (0-1); LYMPHOCYTES ABSOLUTE AUTO 2.19 K/mm3 (0.84-5.20); LYMPHOCYTES PERCENT AUTO 24 % (21-46); MONOCYTES ABSOLUTE AUTO 0.96 K/mm3 (0.16-1.47); MONOCYTES PERCENT AUTO 11 % (4-13); Mean Corpuscular HGB 33.6 pg (26.0-34.0); Mean Corpuscular HGB Conc 33.2 g/dL (31.5-36.5); Mean Corpuscular Volume 101 fL (80-100); Mean Platelet Volume 10.7 fL (9.1-12.4); NEUTROPHILS ABSOLUTE AUTO 5.71 K/mm3 (1.96-9.15); NEUTROPHILS PERCENT AUTO 63 % (41-73); Platelet Count 164 K/mm3 (150-400); RDW Coefficient Variation 13.5 % (11.7-14.2); RDW Standard Deviation 49.8 fL (35.1-46.3); Red Blood Cell Count 3.81 M/mm3 (3.80-5.20); White Blood Cell Count 9.03 K/mm3 (4.00-11.30)
[2019-08-14 05:17] LABS: International Normalized Ratio 2.02; Prothrombin Time Results 20.8 Sec (9.7-11.5)
[2019-08-14 05:22] LABS: Alanine Aminotransfer (ALT/SGP 30 U/L (12-78); Albumin, Blood 2.3 g/dL (3.4-5.0); Albumin/Globulin Ratio 0.8 (0.8-1.8); Alk Phos 84 U/L (50-136); Anion Gap 4 mmol/L (6-16); Aspartate Aminotrans (AST/SGOT 25 U/L (12-37); Blood Urea Nitrogen 17 mg/dL (8-24); Bun/Creatinine Ratio 19.7 (12.0-20.0); CO2, Blood 28 mmol/L (21-32); Calcium, Blood 7.5 mg/dL (8.5-10.1); Chloride, Blood 109 mmol/L (98-108); Creatinine, Blood 0.86 mg/dL (0.40-1.00); Glomerular Filtration Rate >60 (60-); Glucose, Blood 93 mg/dL (70-99); Potassium, Blood 3.3 mmol/L (3.5-5.5); Sodium, Blood 141 mmol/L (136-145); Total Protein, Blood 5.3 g/dL (6.4-8.2)
--- NOTE | 2019-08-14 05:26 | NUR ---
SHIFT SUMMARY PT IS UNSTEADY AT TIMES WHEN TRANSFERING TO BSC. WHEN PT FIRST WAKES UP SHE IS A LITTLE BIT CONFUSED BUT IS ORIENTED EASILY. PT HAS SLEPT T/O SHIFT. PT USES CALL LIGHT APPROPIATELY. PT CURRENTLY SLEEPING AND BREATHING EASY. CALL LIGHT IN REACH AND BED ALARM ON.
--- NOTE | 2019-08-14 15:39 | NUR ---
SHIFT SUMMARY PT IS A/O X 4 WITH C/O PAIN X 1 THIS AFTERNOON, PAIN MEDS WERE GIVEN ORDERED AND EFFECTIVE. PT CONTINUES ON IV ABO ORDERED WITH NO ISSUES OBSERVED. PT HAS NO S/S OF RESPIRATORY DISTRESS AND IS ON ROOM AIR. [employer] REPORTS PT IS IN SINUS RHYTHM @ 94. CBGS HAVE BEEN COVERED WITH INSULIN ORDERED AND PT HAS NO S/S OF HYPER/HYPO GLYCEMIA. WOUNDS WERE TX'D ORDERED. PT REPORTS SHES HAD ONGOING WOUNDS FOR AT LEAST THE LAST 5 YEARS AND HAS A NURSE WHO COMES TO HER HOUSE TO CARE FOR THEM. PT WAS ASSISTED TO TAKE A SHOWER THIS AFTERNOON BY POMOLOGIST AND HER LINENS WERE CHANGED WELL. PT IS ABLE TO MAKE HER NEEDS KNOWN AND CALLS FOR HELP WHEN NEEDED. CALL LIGHT WITHIN REACH.
--- NOTE | 2019-08-15 04:18 | NUR ---
SHIFT SUMMARY PATIENT HAD NO ACUTE CHANGES OBSERVED. AXOX 3 AND ONE ASSIST TO BSC. CBG 156. PIV REMAINS INTACT. ESCROW MANAGER REPORTS SR W/PVC @74. VSS/AFEBRILE. REPORTED RIGHT CORNELL PAIN X ONE AND RECEIVED PO DILAUDID 2 MG PER EMAR. PATIENT ABLE TO SLEEP. DENIES SOB AND N/V. COOPERATIVE WITH CARE. CALL LIGHT IN REACH. BED IN LOWEST POSITION. WILL CONTINUE TO MONITOR UNTIL DAY SHIFT NURSE ASSUMES CARE.
[2019-08-15 05:19] LABS: BASOPHILS ABSOLUTE AUTO 0.05 K/mm3 (0.00-0.23); BASOPHILS PERCENT AUTO 1 % (0-2); EOSINOPHILS PERCENT AUTO 1 % (0-6); Hematocrit 39.7 % (33.0-51.0); Hemoglobin 13.1 g/dL (11.5-16.0); IMMATURE GRAN ABSOLUTE AUTO 0.03 K/mm3 (0.00-0.10); IMMATURE GRAN PERCENT AUTO 0 % (0-1); LYMPHOCYTES ABSOLUTE AUTO 1.96 K/mm3 (0.84-5.20); LYMPHOCYTES PERCENT AUTO 22 % (21-46); MONOCYTES PERCENT AUTO 10 % (4-13); Mean Corpuscular HGB 33.3 pg (26.0-34.0); Mean Corpuscular Volume 101 fL (80-100); Mean Platelet Volume 10.7 fL (9.1-12.4); NEUTROPHILS ABSOLUTE AUTO 5.72 K/mm3 (1.96-9.15); NEUTROPHILS PERCENT AUTO 65 % (41-73); Platelet Count 189 K/mm3 (150-400); RDW Coefficient Variation 13.3 % (11.7-14.2); RDW Standard Deviation 50.7 fL (35.1-46.3); Red Blood Cell Count 3.93 M/mm3 (3.80-5.20); White Blood Cell Count 8.76 K/mm3 (4.00-11.30)
[2019-08-15 05:34] LABS: International Normalized Ratio 2.2; Prothrombin Time Results 22.5 Sec (9.7-11.5)
[2019-08-15 05:41] LABS: Anion Gap 4 mmol/L (6-16); Blood Urea Nitrogen 12 mg/dL (8-24); Bun/Creatinine Ratio 17.3 (12.0-20.0); CO2, Blood 26 mmol/L (21-32); Calcium, Blood 8.2 mg/dL (8.5-10.1); Chloride, Blood 113 mmol/L (98-108); Creatinine, Blood 0.69 mg/dL (0.40-1.00); Glomerular Filtration Rate >60 (60-); Glucose, Blood 60 mg/dL (70-99); Potassium, Blood 3.5 mmol/L (3.5-5.5); Sodium, Blood 143 mmol/L (136-145)
--- NOTE | 2019-08-15 08:41 | NUR ---
PT STARTED SHIFT WITH A LOW CBG OF 55 @ 0724. PT AO AND TALKING NO SIGNS OF SWEAT OR CHANGE IN MENTATION. PT GIVEN ORANGE JUICE WITH SUGAR IMMEDIATELY. PT RECHECKED AT 0837 CBG OF 155.
[2019-08-15] MEDS ORDERED: ACET325 PO (12:28)
[2019-08-15] MEDS ORDERED: ALBU90OI INH (12:29)
[2019-08-15] MEDS ORDERED: AZIT500 PO (12:29)
[2019-08-15] MEDS ORDERED: BISA10S PR (12:30)
[2019-08-15] MEDS ORDERED: CALCIUM CARBON500 M2 PO (12:30)
[2019-08-15] MEDS ORDERED: DOCU100 PO (12:31)
[2019-08-15] MEDS ORDERED: GUAI600T33 PO (12:31)
[2019-08-15] MEDS ORDERED: CEFP200 PO (12:31)
[2019-08-15] MEDS ORDERED: Florastor250 MG PO (12:32)
[2019-08-15] MEDS ORDERED: ONDA4ODT MM (12:32)
[2019-08-15] MEDS ORDERED: INSR10I SC (12:32)
[2019-08-15] MEDS ORDERED: SENN187 PO (12:32)
--- NOTE | 2019-08-15 13:55 | NUR ---
PT DISCHARGED AT 1330 [facility] TO TRANSPORT. PT HAD ALL PAPERWORK REVIEWED AND EDUCATIONAL MATERIAL SENT WITH HER. PT AOX4 AND COOPERATIVE WITH NO DISTRESS NOTED. PT HAD IV REMOVED PRIOR TO DISCHARGE. ALL BELONGINGS WERE COLLECTED AND WITH PT.
== END 2019-08-15 13:32 | disposition home or self-care (01) | DRG 871 ==
LOC: ER 08:23 → MEDS 10:57 → ENPENDDIS 08-15 11:00 → MEDS 08-15 13:32
PROVIDERS: Emergency Medicine; Family Medicine; ADMIT Internal Medicine
DX: A41.9 Sepsis, unspecified organism (principal); J18.9 Pneumonia, unspecified organism; G93.41 Metabolic encephalopathy; N39.0 Urinary tract infection, site not specified; D68.61 Antiphospholipid syndrome; E78.5 Hyperlipidemia, unspecified; M79.7 Fibromyalgia; M94.1 Relapsing polychondritis; E87.6 Hypokalemia; Z79.4 Long term (current) use of insulin; K21.9 Gastro-esophageal reflux disease without esophagitis; F17.210 Nicotine dependence, cigarettes, uncomplicated; J44.9 Chronic obstructive pulmonary disease, unspecified; I12.9 Hypertensive chronic kidney disease with stage 1 through stage 4 chronic kidney disease, or unspecified chronic kidney disease; E11.22 Type 2 diabetes mellitus with diabetic chronic kidney disease; N18.3 Chronic kidney disease, stage 3 (moderate); Z79.01 Long term (current) use of anticoagulants; Z86.718 Personal history of other venous thrombosis and embolism
CPT/HCPCS: 36415; 71046; 80048; 80053; 81001; 82947; 83605; 85025; 85610; 87077; 87081; 87086; 87186; 93005; 93010; 96365; 96367; 99285-25; J0456; J0696; J1815; J7030; J7050; J7512

== ENCOUNTER 2019-08-23 00:18 | Day surgery (SDC) | payer MEDICARE, OTHER ==
[~2019-08-23 00:18] MED LIST changes: +ALBU90OI INH; +ATOR80 PO; +AZIT500 PO; +CALCIUM CARBON500 M2 PO; +CEFP200 PO; +DULO30 PO; +Florastor250 MG PO; +GUAI600T33 PO; +HYDMOR2; +INSR10I SC; +MAGNESIUM OXID500 MG PO; +ONDA4ODT MM; +Oxybutynin Chlor5 M1 PO; +PRED5 PO; +PROLIA60 MG/1 ML SQ; +VITAMIN D31000 UNI1 PO
== END 2019-08-23 22:42 | disposition home or self-care (01) ==
LOC: WOUND 00:18
DX: E11.621 Type 2 diabetes mellitus with foot ulcer (principal); E11.622 Type 2 diabetes mellitus with other skin ulcer; L97.812 Non-pressure chronic ulcer of other part of right lower leg with fat layer exposed; J44.9 Chronic obstructive pulmonary disease, unspecified; F17.200 Nicotine dependence, unspecified, uncomplicated; I10 Essential (primary) hypertension; L97.529 Non-pressure chronic ulcer of other part of left foot with unspecified severity; L95.9 Vasculitis limited to the skin, unspecified; I87.2 Venous insufficiency (chronic) (peripheral); Z79.899 Other long term (current) drug therapy; Z79.4 Long term (current) use of insulin; Z79.01 Long term (current) use of anticoagulants

== ENCOUNTER 2019-08-31 07:51 | Emergency (ER) | payer MEDICARE, OTHER ==
[~2019-08-31] VITALS: Ht 154.9 cm; Wt 73.9 kg
[2019-08-31] MEDS ORDERED: Dilaudid 2 mg Ta2 MG (08:30)
[2019-08-31 09:55] LABS: Prothrombin Time Results >90.0 Sec (9.7-11.5)
[2019-08-31 09:58] LABS: International Normalized Ratio No Calc
== END 2019-08-31 10:20 | disposition home or self-care (01) ==
LOC: ER 07:51
PROVIDERS: Physician Assistant
DX: R79.1 Abnormal coagulation profile (principal); Z91.048 Other nonmedicinal substance allergy status; Z79.899 Other long term (current) drug therapy; L98.9 Disorder of the skin and subcutaneous tissue, unspecified; M79.81 Nontraumatic hematoma of soft tissue; Z79.4 Long term (current) use of insulin; Z79.01 Long term (current) use of anticoagulants; Z79.52 Long term (current) use of systemic steroids; E11.9 Type 2 diabetes mellitus without complications; K21.9 Gastro-esophageal reflux disease without esophagitis; I10 Essential (primary) hypertension; Z87.891 Personal history of nicotine dependence
CPT/HCPCS: 36415; 85610; 99283

== ENCOUNTER → 2019-09-06 | Day surgery (SDC) | payer MEDICARE, OTHER ==
[~2019-09-06] MED LIST changes: +Dilaudid 2 mg Ta2 MG
== END ==
LOC: WOUND 00:15
DX: E11.622 Type 2 diabetes mellitus with other skin ulcer (principal); E11.621 Type 2 diabetes mellitus with foot ulcer; L97.812 Non-pressure chronic ulcer of other part of right lower leg with fat layer exposed; L95.9 Vasculitis limited to the skin, unspecified; I87.2 Venous insufficiency (chronic) (peripheral); L97.525 Non-pressure chronic ulcer of other part of left foot with muscle involvement without evidence of necrosis; Z79.899 Other long term (current) drug therapy; Z79.4 Long term (current) use of insulin

== ENCOUNTER 2019-09-13 00:11 | Day surgery (SDC) | payer MEDICARE, OTHER | END 2019-09-13 23:50 | disposition home or self-care (01) | LOC: WOUND 00:11 | DX: E11.621 Type 2 diabetes mellitus with foot ulcer (principal); L97.512 Non-pressure chronic ulcer of other part of right foot with fat layer exposed; L97.529 Non-pressure chronic ulcer of other part of left foot with unspecified severity; J44.9 Chronic obstructive pulmonary disease, unspecified; I10 Essential (primary) hypertension; L95.9 Vasculitis limited to the skin, unspecified; I87.2 Venous insufficiency (chronic) (peripheral) ==

== ENCOUNTER 2019-09-27 00:13 | Day surgery (SDC) | payer MEDICARE, OTHER | END 2019-09-27 12:00 | disposition home or self-care (01) | LOC: WOUND 00:13 | DX: E11.621 Type 2 diabetes mellitus with foot ulcer (principal); L97.812 Non-pressure chronic ulcer of other part of right lower leg with fat layer exposed; L97.529 Non-pressure chronic ulcer of other part of left foot with unspecified severity; L95.9 Vasculitis limited to the skin, unspecified; I87.2 Venous insufficiency (chronic) (peripheral); J44.9 Chronic obstructive pulmonary disease, unspecified; F17.200 Nicotine dependence, unspecified, uncomplicated; I10 Essential (primary) hypertension; Z79.4 Long term (current) use of insulin; Z79.899 Other long term (current) drug therapy ==

== ENCOUNTER 2019-10-28 07:48 | Emergency (ER) | payer MEDICARE, OTHER ==
[~2019-10-28] VITALS: Ht 162.6 cm; Wt 72.6 kg
[~2019-10-28 07:48] MED LIST changes: -ATOR80 PO; -DULO30 PO; -Dilaudid 2 mg Ta2 MG; -Oxybutynin Chlor5 M1 PO; -PRED5 PO
[2019-10-28 08:13] LABS: Source, Urine Clean Catch
[2019-10-28 08:25] LABS: Bilirubin, Urine Neg (Neg); Blood, Urine 1+ (Neg); Glucose Qualitative, Urine Neg (Neg); Ketones, Urine Neg (Neg); Leukocyte Esterase, Urine 3+ (Neg); Nitrite, Urine Neg (Neg); Protein, Urine 2+ (Neg); Urobilinogen, Urine NORM (Normal)
[2019-10-28 08:37] LABS: BASOPHILS ABSOLUTE AUTO 0.08 K/mm3 (0.00-0.23); BASOPHILS PERCENT AUTO 1 % (0-2); EOSINOPHILS ABSOLUTE AUTO 0.03 K/mm3 (0.00-0.68); EOSINOPHILS PERCENT AUTO 0 % (0-6); Hematocrit 43.7 % (33.0-51.0); Hemoglobin 14.7 g/dL (11.5-16.0); IMMATURE GRAN ABSOLUTE AUTO 0.05 K/mm3 (0.00-0.10); IMMATURE GRAN PERCENT AUTO 0 % (0-1); LYMPHOCYTES ABSOLUTE AUTO 1.14 K/mm3 (0.84-5.20); LYMPHOCYTES PERCENT AUTO 8 % (21-46); MONOCYTES ABSOLUTE AUTO 1.52 K/mm3 (0.16-1.47); MONOCYTES PERCENT AUTO 11 % (4-13); Mean Corpuscular HGB 33.9 pg (26.0-34.0); Mean Corpuscular HGB Conc 33.6 g/dL (31.5-36.5); Mean Corpuscular Volume 101 fL (80-100); Mean Platelet Volume 10.3 fL (9.1-12.4); NEUTROPHILS ABSOLUTE AUTO 11.12 K/mm3 (1.96-9.15); NEUTROPHILS PERCENT AUTO 80 % (41-73); Platelet Count 187 K/mm3 (150-400); RDW Coefficient Variation 14.1 % (11.7-14.2); RDW Standard Deviation 52.2 fL (35.1-46.3); Red Blood Cell Count 4.33 M/mm3 (3.80-5.20); White Blood Cell Count 13.94 K/mm3 (4.00-11.30)
[2019-10-28 08:41] LABS: Appearance, Urine Hazy (Clear); Color, Urine Yellow (P-Yellow)
[2019-10-28 08:51] LABS: Bacteria Many /hpf; Red Blood Cells, Urine Not Seen /hpf (0-2); Squamous Epithelial Cells Not Seen /hpf (Few); Yeast/Fungi Urine Few /hpf
[2019-10-28 08:58] LABS: Albumin/Globulin Ratio 0.9 (0.8-1.8); Bilirubin, Total 1.4 mg/dL (0.1-1.0); Calcium, Blood 8.8 mg/dL (8.5-10.1); Creatinine, Blood 1.13 mg/dL (0.40-1.00); Globulin, Blood 3.4 g/dL (2.2-4.0); Potassium, Blood 3.4 mmol/L (3.5-5.5); Total Protein, Blood 6.4 g/dL (6.4-8.2)
[2019-10-29] MEDS ORDERED: METO25 PO (12:38)
[2019-10-29] MEDS ORDERED: OMEPRAZOLE MAGN20 MG PO (12:38)
[2019-10-29] MEDS ORDERED: Paxil40 MG PO (12:39)
[2019-10-29] MEDS ORDERED: POTCHL20ER PO (12:39)
[2019-10-29] MEDS ORDERED: DULO60 PO (12:40)
[2019-10-29] MEDS ORDERED: Dilaudid 2 mg Ta2 MG PO (12:41)
[2019-10-29] MEDS ORDERED: OXYB5 PO (12:41)
[2019-10-29] MEDS ORDERED: WARF5 PO (12:42)
[2019-10-29] MEDS ORDERED: ATOR80 PO (12:44)
[2019-10-29] MEDS ORDERED: Prednisone10 MG PO (12:44)
[2019-10-29] MEDS ORDERED: FURO80 PO (12:46)
== END 2019-10-28 09:20 | disposition home or self-care (01) ==
LOC: ER 07:48
PROVIDERS: Emergency Medicine
DX: D72.829 Elevated white blood cell count, unspecified (principal); R50.9 Fever, unspecified; E11.22 Type 2 diabetes mellitus with diabetic chronic kidney disease; N18.3 Chronic kidney disease, stage 3 (moderate); K21.9 Gastro-esophageal reflux disease without esophagitis; Z86.718 Personal history of other venous thrombosis and embolism; Z91.048 Other nonmedicinal substance allergy status; Z79.899 Other long term (current) drug therapy; Z79.01 Long term (current) use of anticoagulants; Z79.52 Long term (current) use of systemic steroids; F17.210 Nicotine dependence, cigarettes, uncomplicated
CPT/HCPCS: 36415; 80053; 81001; 85025; 87086; 99283

== ENCOUNTER 2019-10-29 09:04 | Inpatient (IN) | payer MEDICARE, OTHER ==
[~2019-10-29] VITALS: Ht 162.6 cm; Wt 76.6 kg
[2019-10-29 09:46] LABS: BASOPHILS PERCENT AUTO 1 % (0-2); EOSINOPHILS PERCENT AUTO 0 % (0-6); Hematocrit 39.8 % (33.0-51.0); Hemoglobin 13.5 g/dL (11.5-16.0); IMMATURE GRAN ABSOLUTE AUTO 0.12 K/mm3 (0.00-0.10); IMMATURE GRAN PERCENT AUTO 1 % (0-1); LYMPHOCYTES ABSOLUTE AUTO 1.86 K/mm3 (0.84-5.20); LYMPHOCYTES PERCENT AUTO 12 % (21-46); MONOCYTES PERCENT AUTO 14 % (4-13); Mean Corpuscular HGB 33.9 pg (26.0-34.0); Mean Corpuscular HGB Conc 33.9 g/dL (31.5-36.5); Mean Corpuscular Volume 100 fL (80-100); Mean Platelet Volume 10.7 fL (9.1-12.4); NEUTROPHILS ABSOLUTE AUTO 11.33 K/mm3 (1.96-9.15); NEUTROPHILS PERCENT AUTO 73 % (41-73); Platelet Count 153 K/mm3 (150-400); RDW Coefficient Variation 14.3 % (11.7-14.2); RDW Standard Deviation 51.8 fL (35.1-46.3); Red Blood Cell Count 3.98 M/mm3 (3.80-5.20); White Blood Cell Count 15.51 K/mm3 (4.00-11.30)
[2019-10-29 10:03] LABS: Albumin, Blood 2.6 g/dL (3.4-5.0); Albumin/Globulin Ratio 0.8 (0.8-1.8); Bilirubin, Total 1.4 mg/dL (0.1-1.0); Bun/Creatinine Ratio 19.8 (12.0-20.0); Calcium, Blood 8.7 mg/dL (8.5-10.1); Creatinine, Blood 1.11 mg/dL (0.40-1.00); Globulin, Blood 3.4 g/dL (2.2-4.0); Potassium, Blood 4.6 mmol/L (3.5-5.5)
[2019-10-29 10:21] LABS: Source, Urine Clean Catch
[2019-10-29 10:25] LABS: Appearance, Urine Hazy (Clear); Bilirubin, Urine Neg (Neg); Blood, Urine 4+ (Neg); Color, Urine Yellow (P-Yellow); Glucose Qualitative, Urine Neg (Neg); Ketones, Urine Neg (Neg); Leukocyte Esterase, Urine 3+ (Neg); Nitrite, Urine Neg (Neg); Protein, Urine 3+ (Neg); Urobilinogen, Urine 1+ (Normal)
[2019-10-29 10:42] LABS: White Blood Cells, Urine TNTC /hpf (0-5)
[2019-10-29 10:43] LABS: Bacteria Many /hpf; Squamous Epithelial Cells Rare /hpf (Few)
[2019-10-29 12:01] LABS: International Normalized Ratio 2.16; Prothrombin Time Results 22.1 Sec (9.7-11.5)
[2019-10-29] MEDS ORDERED: METO25 PO (12:38)
[2019-10-29] MEDS ORDERED: OMEPRAZOLE MAGN20 MG PO (12:38)
[2019-10-29] MEDS ORDERED: Paxil40 MG PO (12:39)
[2019-10-29] MEDS ORDERED: POTCHL20ER PO (12:39)
[2019-10-29] MEDS ORDERED: DULO60 PO (12:40)
[2019-10-29] MEDS ORDERED: OXYB5 PO (12:41)
[2019-10-29] MEDS ORDERED: Dilaudid 2 mg Ta2 MG PO (12:41)
[2019-10-29] MEDS ORDERED: WARF5 PO (12:42)
[2019-10-29] MEDS ORDERED: Prednisone10 MG PO (12:44)
[2019-10-29] MEDS ORDERED: ATOR80 PO (12:44)
[2019-10-29] MEDS ORDERED: FURO80 PO (12:46)
[2019-10-30 04:52] LABS: BASOPHILS ABSOLUTE AUTO 0.05 K/mm3 (0.00-0.23); BASOPHILS PERCENT AUTO 1 % (0-2); EOSINOPHILS ABSOLUTE AUTO 0.04 K/mm3 (0.00-0.68); EOSINOPHILS PERCENT AUTO 0 % (0-6); Hematocrit 39.4 % (33.0-51.0); Hemoglobin 13.2 g/dL (11.5-16.0); IMMATURE GRAN ABSOLUTE AUTO 0.04 K/mm3 (0.00-0.10); IMMATURE GRAN PERCENT AUTO 0 % (0-1); LYMPHOCYTES ABSOLUTE AUTO 1.51 K/mm3 (0.84-5.20); LYMPHOCYTES PERCENT AUTO 15 % (21-46); MONOCYTES ABSOLUTE AUTO 1.01 K/mm3 (0.16-1.47); MONOCYTES PERCENT AUTO 10 % (4-13); Mean Corpuscular HGB 34.2 pg (26.0-34.0); Mean Corpuscular HGB Conc 33.5 g/dL (31.5-36.5); Mean Corpuscular Volume 102 fL (80-100); Mean Platelet Volume 10.5 fL (9.1-12.4); NEUTROPHILS ABSOLUTE AUTO 7.16 K/mm3 (1.96-9.15); NEUTROPHILS PERCENT AUTO 73 % (41-73); Platelet Count 123 K/mm3 (150-400); RDW Coefficient Variation 14.1 % (11.7-14.2); Red Blood Cell Count 3.86 M/mm3 (3.80-5.20); White Blood Cell Count 9.81 K/mm3 (4.00-11.30)
[2019-10-30 05:06] LABS: International Normalized Ratio 1.56; Prothrombin Time Results 16.3 Sec (9.7-11.5)
[2019-10-30 05:18] LABS: Magnesium, Blood 1.3 mg/dL (1.6-2.4)
[2019-10-30 05:23] LABS: Alanine Aminotransfer (ALT/SGP 73 U/L (12-78); Albumin, Blood 2.4 g/dL (3.4-5.0); Albumin/Globulin Ratio 0.8 (0.8-1.8); Alk Phos 112 U/L (50-136); Anion Gap 8 mmol/L (6-16); Aspartate Aminotrans (AST/SGOT 83 U/L (12-37); Bilirubin, Total 1.3 mg/dL (0.1-1.0); Blood Urea Nitrogen 16 mg/dL (8-24); Bun/Creatinine Ratio 18.9 (12.0-20.0); CO2, Blood 26 mmol/L (21-32); Calcium, Blood 7.9 mg/dL (8.5-10.1); Chloride, Blood 106 mmol/L (98-108); Creatinine, Blood 0.85 mg/dL (0.40-1.00); Globulin, Blood 3.2 g/dL (2.2-4.0); Glomerular Filtration Rate >60 (60-); Glucose, Blood 247 mg/dL (70-99); Potassium, Blood 3.4 mmol/L (3.5-5.5); Sodium, Blood 140 mmol/L (136-145); Total Protein, Blood 5.6 g/dL (6.4-8.2)
[2019-10-31 05:06] LABS: International Normalized Ratio 1.97; Prothrombin Time Results 20.3 Sec (9.7-11.5)
[2019-10-31 05:19] LABS: Anion Gap 6 mmol/L (6-16); Blood Urea Nitrogen 14 mg/dL (8-24); Bun/Creatinine Ratio 16.8 (12.0-20.0); CO2, Blood 26 mmol/L (21-32); Calcium, Blood 7.5 mg/dL (8.5-10.1); Chloride, Blood 109 mmol/L (98-108); Creatinine, Blood 0.83 mg/dL (0.40-1.00); Glomerular Filtration Rate >60 (60-); Glucose, Blood 290 mg/dL (70-99); Magnesium, Blood 1.6 mg/dL (1.6-2.4); Potassium, Blood 4.4 mmol/L (3.5-5.5); Sodium, Blood 141 mmol/L (136-145)
[2019-10-31] MEDS ORDERED: BASAGLAR K100 UNIT/1 SC (10:44)
[2019-10-31] MEDS ORDERED: LEVFLO500 PO (10:44)
== END 2019-10-31 12:29 | disposition home or self-care (01) | DRG 872 ==
LOC: ER 09:04 → MEDS 12:19
PROVIDERS: Internal Medicine; Nurse Practitioner Acute Care; Physician Assistant; ADMIT Internal Medicine
DX: A41.51 Sepsis due to Escherichia coli [E. coli] (principal); D68.61 Antiphospholipid syndrome; N39.0 Urinary tract infection, site not specified; K86.1 Other chronic pancreatitis; E83.42 Hypomagnesemia; E87.6 Hypokalemia; M94.1 Relapsing polychondritis; R74.0 Nonspecific elevation of levels of transaminase and lactic acid dehydrogenase [LDH]; Z79.52 Long term (current) use of systemic steroids; Z79.4 Long term (current) use of insulin; K21.9 Gastro-esophageal reflux disease without esophagitis; E11.22 Type 2 diabetes mellitus with diabetic chronic kidney disease; N18.3 Chronic kidney disease, stage 3 (moderate); E11.621 Type 2 diabetes mellitus with foot ulcer; L97.529 Non-pressure chronic ulcer of other part of left foot with unspecified severity; K86.89 Other specified diseases of pancreas
CPT/HCPCS: 36415; 51701; 71046; 76705; 80048; 80053; 81001; 82947; 83605; 83735; 85025; 85610; 87040; 87077; 87086; 87186; 93005; 93010; 96365-59; 96366-59; 96367-59; 99285-25; A9270; A9270-GY; J0696; J2185; J3475; J7030; J7512

== ENCOUNTER 2019-11-17 23:03 | Emergency (ER) | payer MEDICARE, OTHER ==
[~2019-11-17] VITALS: Ht 162.6 cm; Wt 72.6 kg
[~2019-11-17 23:03] MED LIST changes: +ATOR80 PO; +BASAGLAR K100 UNIT/1 SC; +DULO60 PO; +Dilaudid 2 mg Ta2 MG PO; +Paxil40 MG PO; +Prednisone10 MG PO
[2019-11-18] MEDS ORDERED: KEFLEX500 MG PO (02:15)
== END 2019-11-18 03:02 | disposition home or self-care (01) ==
LOC: ER 23:03
DX: S51.011A Laceration without foreign body of right elbow, initial encounter (principal); S41.111A Laceration without foreign body of right upper arm, initial encounter; E11.9 Type 2 diabetes mellitus without complications; K21.9 Gastro-esophageal reflux disease without esophagitis; Z91.048 Other nonmedicinal substance allergy status; Z79.899 Other long term (current) drug therapy; Z79.01 Long term (current) use of anticoagulants; Z79.4 Long term (current) use of insulin; Z87.891 Personal history of nicotine dependence; W01.0XXA Fall on same level from slipping, tripping and stumbling without subsequent striking against object, initial encounter
CPT/HCPCS: 12004; 73070; 99283-25

== ENCOUNTER 2019-11-29 10:40 | Emergency (ER) | payer MEDICARE, OTHER ==
[~2019-11-29] VITALS: Ht 162.6 cm; Wt 72.6 kg
[~2019-11-29 10:40] MED LIST changes: +KEFLEX500 MG PO
== END 2019-11-29 11:42 | disposition home or self-care (01) ==
LOC: ER 10:40
DX: S51.011D Laceration without foreign body of right elbow, subsequent encounter (principal); I12.9 Hypertensive chronic kidney disease with stage 1 through stage 4 chronic kidney disease, or unspecified chronic kidney disease; E11.22 Type 2 diabetes mellitus with diabetic chronic kidney disease; N18.3 Chronic kidney disease, stage 3 (moderate); K21.9 Gastro-esophageal reflux disease without esophagitis; E78.5 Hyperlipidemia, unspecified; Z91.048 Other nonmedicinal substance allergy status; Z79.899 Other long term (current) drug therapy; Z79.01 Long term (current) use of anticoagulants; Z79.4 Long term (current) use of insulin
CPT/HCPCS: 99282

== ENCOUNTER 2020-02-14 00:48 | Day surgery (SDC) | payer MEDICARE, OTHER | END 2020-02-14 22:53 | disposition home or self-care (01) | LOC: WOUND 00:48 | DX: E11.621 Type 2 diabetes mellitus with foot ulcer (principal); L97.812 Non-pressure chronic ulcer of other part of right lower leg with fat layer exposed; J44.9 Chronic obstructive pulmonary disease, unspecified; I10 Essential (primary) hypertension ==

== ENCOUNTER 2020-03-20 00:23 | Day surgery (SDC) | payer MEDICARE, OTHER ==
[2020-03-25] MEDS ORDERED: CALCIUM 600 +1 EA11 PO (01:43)
[2020-03-25] MEDS ORDERED: PAXIL40 M1 PO (01:44)
[2020-03-25] MEDS ORDERED: BASAGLAR K100 UNIT/1 SC (01:45)
[2020-03-25] MEDS ORDERED: PREG100 PO (01:45)
[2020-03-25] MEDS ORDERED: NOVOLOG FL100 UNIT/3 SC (01:46)
[2020-03-25] MEDS ORDERED: FOLI1 PO (01:47)
[2020-03-25] MEDS ORDERED: LISI20 PO (01:48)
[2020-03-25] MEDS ORDERED: PRED10 PO (01:49)
[2020-03-25] MEDS ORDERED: MYRBETRIQ50 MG PO ×2 (01:49→01:50)
== END 2020-03-20 22:41 | disposition home or self-care (01) ==
LOC: WOUND 00:23
DX: I77.6 Arteritis, unspecified (principal); E11.622 Type 2 diabetes mellitus with other skin ulcer; L97.812 Non-pressure chronic ulcer of other part of right lower leg with fat layer exposed; E11.52 Type 2 diabetes mellitus with diabetic peripheral angiopathy with gangrene; I96 Gangrene, not elsewhere classified; D68.61 Antiphospholipid syndrome; J44.9 Chronic obstructive pulmonary disease, unspecified; F17.200 Nicotine dependence, unspecified, uncomplicated; I10 Essential (primary) hypertension; M94.8X9 Other specified disorders of cartilage, unspecified sites; D64.9 Anemia, unspecified; M10.9 Gout, unspecified; E11.40 Type 2 diabetes mellitus with diabetic neuropathy, unspecified; Z92.21 Personal history of antineoplastic chemotherapy; Z79.899 Other long term (current) drug therapy; Z91.048 Other nonmedicinal substance allergy status; Z79.01 Long term (current) use of anticoagulants; Z79.4 Long term (current) use of insulin

== ENCOUNTER 2020-04-17 00:23 | Day surgery (SDC) | payer MEDICARE, OTHER ==
[~2020-04-17 00:23] MED LIST changes: +CALCIUM 600 +1 EA11 PO; +MYRBETRIQ50 MG PO; +NOVOLOG FL100 UNIT/3 SC; +PAXIL40 M1 PO
== END 2020-04-17 22:45 | disposition home or self-care (01) ==
LOC: WOUND 00:23
DX: E11.622 Type 2 diabetes mellitus with other skin ulcer (principal); F17.200 Nicotine dependence, unspecified, uncomplicated; L97.812 Non-pressure chronic ulcer of other part of right lower leg with fat layer exposed; J44.9 Chronic obstructive pulmonary disease, unspecified; I10 Essential (primary) hypertension; Z79.899 Other long term (current) drug therapy; Z79.01 Long term (current) use of anticoagulants; Z79.4 Long term (current) use of insulin
CPT/HCPCS: G0463

== ENCOUNTER 2020-04-17 11:54 | Emergency (ER) | payer MEDICARE, OTHER ==
[~2020-04-17] VITALS: Ht 154.9 cm; Wt 72.6 kg
== END 2020-04-17 12:30 | disposition left against medical advice (07) ==
LOC: ER 11:54
DX: Z53.21 Procedure and treatment not carried out due to patient leaving prior to being seen by health care provider (principal)

== ENCOUNTER 2020-04-19 10:38 | Emergency (ER) | payer MEDICARE, OTHER ==
[~2020-04-19] VITALS: Ht 154.9 cm; Wt 72.6 kg
[2020-04-19] MEDS ORDERED: CODACE30 PO (12:17)
== END 2020-04-19 12:38 | disposition home or self-care (01) ==
LOC: ER 10:38
DX: S00.03XA Contusion of scalp, initial encounter (principal); I12.9 Hypertensive chronic kidney disease with stage 1 through stage 4 chronic kidney disease, or unspecified chronic kidney disease; N18.3 Chronic kidney disease, stage 3 (moderate); E11.22 Type 2 diabetes mellitus with diabetic chronic kidney disease; K21.9 Gastro-esophageal reflux disease without esophagitis; E78.5 Hyperlipidemia, unspecified; Z86.718 Personal history of other venous thrombosis and embolism; Z91.09 Other allergy status, other than to drugs and biological substances; Z79.01 Long term (current) use of anticoagulants; Z79.899 Other long term (current) drug therapy; Z79.4 Long term (current) use of insulin
CPT/HCPCS: 70450; 99283-25

== ENCOUNTER → 2020-04-27 | Outpatient (CLI) | payer MEDICARE, OTHER ==
[~2020-04-27] MED LIST changes: +B-1100 M2 PO; +CIPRO250 MG PO; +CODACE30 PO; +COLCHICINE0.6 MG PO; +K-Dur 20 meq T20 MEQ PO; +LIPITOR80 MG PO; +METOPROLOL TART25 MG PO; +METPRE4DP PO; +One Daily Comp1 EACH PO; +PRILOSEC OTC20 MG PO; +PROLIA60 MG/1 ML SC; +TUMS500 MG PO; +VISBIOME PROBIOTIC PO; +VITAMIN D325 MC3 PO; +Vitamin B-121000 MCG PO
[2020-04-27 09:40] LABS: BASOPHILS ABSOLUTE AUTO 0.04 K/mm3 (0.00-0.23); BASOPHILS PERCENT AUTO 0 % (0-2); EOSINOPHILS ABSOLUTE AUTO 0.03 K/mm3 (0.00-0.68); EOSINOPHILS PERCENT AUTO 0 % (0-6); Hematocrit 40.5 % (33.0-51.0); Hemoglobin 14.5 g/dL (11.5-16.0); IMMATURE GRAN ABSOLUTE AUTO 0.05 K/mm3 (0.00-0.10); IMMATURE GRAN PERCENT AUTO 0 % (0-1); LYMPHOCYTES PERCENT AUTO 17 % (21-46); MONOCYTES ABSOLUTE AUTO 1.67 K/mm3 (0.16-1.47); MONOCYTES PERCENT AUTO 14 % (4-13); Mean Corpuscular HGB 34.2 pg (26.0-34.0); Mean Corpuscular HGB Conc 35.8 g/dL (31.5-36.5); Mean Corpuscular Volume 96 fL (80-100); Mean Platelet Volume 11.4 fL (9.1-12.4); NEUTROPHILS ABSOLUTE AUTO 8.41 K/mm3 (1.96-9.15); NEUTROPHILS PERCENT AUTO 68 % (41-73); Platelet Count 168 K/mm3 (150-400); RDW Coefficient Variation 12.9 % (11.7-14.2); RDW Standard Deviation 44.8 fL (35.1-46.3); Red Blood Cell Count 4.24 M/mm3 (3.80-5.20)
[2020-04-27 09:54] LABS: Albumin/Globulin Ratio 0.9 (0.8-1.8); Bun/Creatinine Ratio 12.9 (12.0-20.0); Calcium, Blood 9.4 mg/dL (8.5-10.1); Creatinine, Blood 1.24 mg/dL (0.40-1.00); Globulin, Blood 3.4 g/dL (2.2-4.0); Total Protein, Blood 6.4 g/dL (6.4-8.2)
== END | disposition home or self-care (01) ==
LOC: LAB SHORT 09:34 → LAB EV 09:34
PROVIDERS: Physician Assistant
DX: R50.9 Fever, unspecified (principal)
CPT/HCPCS: 80053; 85025; 87040

== ENCOUNTER 2020-05-09 06:56 | Inpatient (IN) | payer MEDICARE, OTHER ==
[~2020-05-09] VITALS: Ht 167.6 cm; Wt 70.6 kg
[~2020-05-09 06:56] MED LIST changes: -B-1100 M2 PO; -CIPRO250 MG PO; -COLCHICINE0.6 MG PO; -K-Dur 20 meq T20 MEQ PO; -LIPITOR80 MG PO; -METOPROLOL TART25 MG PO; -METPRE4DP PO; -One Daily Comp1 EACH PO; -PRILOSEC OTC20 MG PO; -PROLIA60 MG/1 ML SC; -TUMS500 MG PO; -VISBIOME PROBIOTIC PO; -VITAMIN D325 MC3 PO; -Vitamin B-121000 MCG PO
[2020-05-09 07:46] LABS: BASOPHILS ABSOLUTE AUTO 0.04 K/mm3 (0.00-0.23); BASOPHILS PERCENT AUTO 0 % (0-2); EOSINOPHILS ABSOLUTE AUTO 0.02 K/mm3 (0.00-0.68); EOSINOPHILS PERCENT AUTO 0 % (0-6); Hematocrit 36.7 % (33.0-51.0); Hemoglobin 12.8 g/dL (11.5-16.0); IMMATURE GRAN ABSOLUTE AUTO 0.07 K/mm3 (0.00-0.10); IMMATURE GRAN PERCENT AUTO 1 % (0-1); LYMPHOCYTES PERCENT AUTO 12 % (21-46); MONOCYTES ABSOLUTE AUTO 2.28 K/mm3 (0.16-1.47); MONOCYTES PERCENT AUTO 15 % (4-13); Mean Corpuscular HGB 32.9 pg (26.0-34.0); Mean Corpuscular HGB Conc 34.9 g/dL (31.5-36.5); Mean Corpuscular Volume 94 fL (80-100); Mean Platelet Volume 10.4 fL (9.1-12.4); NEUTROPHILS ABSOLUTE AUTO 11.33 K/mm3 (1.96-9.15); NEUTROPHILS PERCENT AUTO 73 % (41-73); Platelet Count 273 K/mm3 (150-400); RDW Coefficient Variation 12.8 % (11.7-14.2); RDW Standard Deviation 43.8 fL (35.1-46.3); Red Blood Cell Count 3.89 M/mm3 (3.80-5.20); White Blood Cell Count 15.54 K/mm3 (4.00-11.30)
[2020-05-09 08:06] LABS: Source, Urine Catheter
[2020-05-09 08:14] LABS: Appearance, Urine Clear (Clear); Bilirubin, Urine Neg (Neg); Blood, Urine 4+ (Neg); Color, Urine Yellow (P-Yellow); Glucose Qualitative, Urine 1+ (Neg); Ketones, Urine Neg (Neg); Leukocyte Esterase, Urine 2+ (Neg); Nitrite, Urine Neg (Neg); Protein, Urine 3+ (Neg); Specific Gravity, Urine 1.005 (1.003-1.022); Urobilinogen, Urine NORM (Normal)
[2020-05-09 08:20] LABS: Prothrombin Time Results 78.2 Sec (9.7-11.5)
[2020-05-09 08:21] LABS: International Normalized Ratio 8.23
[2020-05-09 08:27] LABS: Bacteria Rare /hpf; Squamous Epithelial Cells Few /hpf (Few)
[2020-05-09 08:29] LABS: Alanine Aminotransfer (ALT/SGP 26 U/L (12-78); Albumin, Blood 2.4 g/dL (3.4-5.0); Albumin/Globulin Ratio 0.7 (0.8-1.8); Alk Phos 82 U/L (50-136); Anion Gap 6 mmol/L (6-16); Aspartate Aminotrans (AST/SGOT 23 U/L (12-37); Bilirubin, Total 1.2 mg/dL (0.1-1.0); Blood Urea Nitrogen 18 mg/dL (8-24); Bun/Creatinine Ratio 20.9 (12.0-20.0); CO2, Blood 32 mmol/L (21-32); Calcium, Blood 9.1 mg/dL (8.5-10.1); Chloride, Blood 96 mmol/L (98-108); Creatinine, Blood 0.86 mg/dL (0.40-1.00); Globulin, Blood 3.6 g/dL (2.2-4.0); Glomerular Filtration Rate >60 (60-); Glucose, Blood 188 mg/dL (70-99); Sodium, Blood 134 mmol/L (136-145)
[2020-05-09 10:32] LABS: Adenovirus Not Detected (NOT DETECT); Bordetella pertussis Not Detected (NOT DETECT); Chlamydophila pneumoniae Not Detected (NOT DETECT); Coronavirus 229E Not Detected (NOT DETECT); Coronavirus HKU1 Not Detected (NOT DETECT); Coronavirus NL63 Not Detected (NOT DETECT); Coronavirus OC43 Not Detected (NOT DETECT); Human Metapneumovirus Not Detected (NOT DETECT); Human Rhinovirus/Enterovirus Not Detected (NOT DETECT); Influenza A/2009-H1 Not Detected (NOT DETECT); Influenza A/H1 Not Detected (NOT DETECT); Influenza A/H3 Not Detected (NOT DETECT); Influenza B Not Detected (NOT DETECT); Mycoplasma pneumoniae Not Detected (NOT DETECT); Parainfluenza Virus 1 Not Detected (NOT DETECT); Parainfluenza Virus 2 Not Detected (NOT DETECT); Parainfluenza Virus 3 Not Detected (NOT DETECT); Parainfluenza Virus 4 Not Detected (NOT DETECT); Respiratory Syncytial Virus Not Detected (NOT DETECT); SARS-Cov-2 (COVID-19), BioFire Not Detected (NOT DETECT)
[2020-05-09] MEDS ORDERED: PARO20 PO (11:41)
[2020-05-09] MEDS ORDERED: METOPROLOL TART25 MG PO (11:42)
[2020-05-09] MEDS ORDERED: PRILOSEC OTC20 MG PO (11:42)
[2020-05-09] MEDS ORDERED: K-Dur 20 meq T20 MEQ PO (11:42)
[2020-05-09] MEDS ORDERED: OXYB5 PO (11:43)
[2020-05-09] MEDS ORDERED: LIPITOR80 MG PO (11:43)
[2020-05-09] MEDS ORDERED: Prednisone10 MG PO (11:45)
--- NOTE | 2020-05-09 18:02 | NUR ---
Shift Summary Received report from [facility] ED-RN, patient arrived from ER to MED 356 via [facility] with doan catheter @ 1300. Catheter was placed in ER. 2P moderate to transfer from [facility] to bed. Patient is pretty weak. A/Ox4, pleasant and cooperative with care. Received telephone order to start ADA diet for lunch from Juma, order updated. Patient reports deaf in L ear. Upon skin assessment, multiple bruising, scabs, and wounds scattered throughout body. Photos in chart. 2L NC, denies shortness of breath. C/O 8/10 pain in L hip for two days now and can not recall what preceeded the pain. Dorothea has been notified and will be putting orders in for XR-L hip and pain med. Call for needs appropriately. Med rec is incomplete d/t managing meds. Instructed patient to let know to come in tomorrow with med list for updating. Will report to oncoming RN.
--- NOTE | 2020-05-09 19:45 | NUR ---
ASSUMED CARE. AOX3, COOPERATIVE. LUNG SOUNDS CLEAR BUT DIMINISHED IN BASES. HR SINUS. NO CHEST PAIN OR SOB NOTED. ABDOMIN BTX4, PASSING FLATUS. BRUISING NOTED BLE, HIPS AND SIDE OF FACE FROM FALLS. REPORTS PAIN IN BILATERAL HIPS. THIS IS CHRONIC ALONG WITH WOUNDS TO HER BLE. 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 DRESSINGS CDI. REQUEST PAIN MEDICATION AND SOMETHING TO DRINK, WILL DO. CALL LIGHT IN REACH.
[2020-05-10 05:13] LABS: BASOPHILS ABSOLUTE AUTO 0.02 K/mm3 (0.00-0.23); BASOPHILS PERCENT AUTO 0 % (0-2); EOSINOPHILS PERCENT AUTO 0 % (0-6); Hematocrit 33.7 % (33.0-51.0); Hemoglobin 11.3 g/dL (11.5-16.0); IMMATURE GRAN PERCENT AUTO 1 % (0-1); LYMPHOCYTES ABSOLUTE AUTO 1.39 K/mm3 (0.84-5.20); LYMPHOCYTES PERCENT AUTO 7 % (21-46); MONOCYTES ABSOLUTE AUTO 1.91 K/mm3 (0.16-1.47); MONOCYTES PERCENT AUTO 10 % (4-13); Mean Corpuscular HGB 32.5 pg (26.0-34.0); Mean Corpuscular HGB Conc 33.5 g/dL (31.5-36.5); Mean Corpuscular Volume 97 fL (80-100); Mean Platelet Volume 10.5 fL (9.1-12.4); NEUTROPHILS ABSOLUTE AUTO 16.32 K/mm3 (1.96-9.15); NEUTROPHILS PERCENT AUTO 83 % (41-73); Platelet Count 264 K/mm3 (150-400); Red Blood Cell Count 3.48 M/mm3 (3.80-5.20); White Blood Cell Count 19.74 K/mm3 (4.00-11.30)
[2020-05-10 05:34] LABS: Prothrombin Time Results 39.8 Sec (9.7-11.5)
[2020-05-10 05:41] LABS: Alanine Aminotransfer (ALT/SGP 21 U/L (12-78); Albumin, Blood 1.8 g/dL (3.4-5.0); Albumin/Globulin Ratio 0.5 (0.8-1.8); Alk Phos 73 U/L (50-136); Anion Gap 6 mmol/L (6-16); Aspartate Aminotrans (AST/SGOT 20 U/L (12-37); Bilirubin, Total 0.7 mg/dL (0.1-1.0); Blood Urea Nitrogen 15 mg/dL (8-24); Bun/Creatinine Ratio 18.5 (12.0-20.0); CO2, Blood 29 mmol/L (21-32); Calcium, Blood 8.5 mg/dL (8.5-10.1); Chloride, Blood 102 mmol/L (98-108); Creatinine, Blood 0.81 mg/dL (0.40-1.00); Globulin, Blood 3.5 g/dL (2.2-4.0); Glomerular Filtration Rate >60 (60-); Glucose, Blood 272 mg/dL (70-99); Magnesium, Blood 1.2 mg/dL (1.6-2.4); Sodium, Blood 137 mmol/L (136-145); Total Protein, Blood 5.3 g/dL (6.4-8.2)
[2020-05-10 05:46] LABS: International Normalized Ratio 4.02
--- NOTE | 2020-05-10 05:51 | NUR ---
SHIFT SUMMARY: AOX3, PLEASANT AND COOPERATIVE WITH CARE. REPORTS PAIN TO BLE MORE LEFT THEN RIGHT. MEDICATED X2 WITH OXYCODONE WHICH HELPED TO RELIEVE PAIN. GENERALIZED WEAKNESS. PATIENT DEAF IN L EAR, BUT DOES WELL COMMUNICATING. USES CALL LIGHT APPROPRIATLY AND IS ABLE TO STATES NEEDS. MULTIPLE BRUISING, SCABS, AND WOUNDS SCATTERED ALL OVER THE BODY. DRESSINGS TO BILATERAL SHINS, CLEAN DRY AND INTACT. VS WNL, AFEBRILE. WENT FOR XRAY ON HIPS, SHOWED OLD FRACTURES. WBC 19. INR 4.02. 2 LITTERS O2 SATS >90%. SLEPT WELL T/O NIGHT. KAUR REMOVED IT WAS TEMPORARY AND PLACED IN ER. NO OTHER CHANGES TO REPORT THIS SHIFT.
--- NOTE | 2020-05-10 07:20 | NUR ---
ASSUMED CARE OF PT- BEDSIDE REPORT COMPLETED WITH NIGHT RN DAJA. PT INR WAS HIGH ON ADMIT AND HAS REDUCED DOWN SINCE ADMISSION. PT HAS MULTIPLE CHRONIC WOUNDS, AN ELEVATED WBC ON LABS ON ADMIT SHE HAD A FEVER OF 102, PT IN ISO FOR Hx OF ESBL IN THE URINE. KAUR PLACED IN THE ED DC'D AT 0500 PER REPORT. PHOTOS IN CHART OF THE EXISTING WOUNDS PER REPORT FROM NIGHT RN. PT ALERT AT THE TIME OF BEDSIDE REPORT AND PARTICIPATED. PT LAYING IN BED CALL LIGHT IN REACH, NO S&S OF DISTRESS NOTED AT THE TIME OF SHIFT CHANGE WILL CTM.
[2020-05-10] MEDS ORDERED: METPRE4DP PO (10:53)
[2020-05-10] MEDS ORDERED: OXYB5 PO (10:54)
[2020-05-10] MEDS ORDERED: METO25 PO (10:54)
[2020-05-10] MEDS ORDERED: HYDMOR2 PO (10:56)
[2020-05-10] MEDS ORDERED: COLCHICINE0.6 MG PO (10:59)
--- NOTE | 2020-05-10 10:59 | NUR ---
MED REC UPDATED WITH LIST FAXED TO HOSPITAL FROM THE PHARMACY.
--- NOTE | 2020-05-10 12:21 | NUR ---
PT TRANSFERED TO SITTING IN A CHAIR FOR LUNCH 2P MOD ASSIST D/T LINES AND TUBES. PT TOLLERATED THE TRANSFER WELL AND IS SITTING UP EATING AT THIS TIME.
--- NOTE | 2020-05-10 13:02 | NUR ---
PT SPOUSE ARRIVED. PT MED LIST FROM THE PHARMACY DID NOT INCLUDE HER INSULIN. SPOKE TO HIM ABOUT THIS AND HE SYSYED THEY GET IT FROM [facility] IN [place]. HE PROVIDED A PHONE NUMBER. CALLED THE OFFICE TO CONFIRM THE PT INSULIN DOSES THE SPOUSES EXPLANATION SEEMED A LITTLE ABNORMAL. PER MACHINE SETUP OPERATOR RACHELLE THE PT DOSE IS LANTUS 30 UNITS DAILY AND HUMALOG 10 UNITS WITH BREAKFAST AND DINNER NEEDED. WILL UPDATE THE PT MED LIST. MACHINE SETUP OPERATOR REQUESTED AN ACTIVE MEDICATION LIST BE FAXED HERE FOR US TO CORRECTLY RECONCILE THE PT MEDICATIONS.
[2020-05-10] MEDS ORDERED: CREON DR 12,001 EACH PO (15:07)
[2020-05-10] MEDS ORDERED: DULO60 PO (15:08)
[2020-05-10] MEDS ORDERED: PROLIA60 MG/1 ML SC (15:09)
[2020-05-10] MEDS ORDERED: PARO20 PO (15:09)
[2020-05-10] MEDS ORDERED: TUMS500 MG PO (15:10)
[2020-05-10] MEDS ORDERED: FOLI1 PO (15:11)
[2020-05-10] MEDS ORDERED: One Daily Comp1 EACH PO (15:12)
[2020-05-10] MEDS ORDERED: MAGNESIUM OXID500 MG PO (15:13)
[2020-05-10] MEDS ORDERED: B-1100 M2 PO (15:14)
[2020-05-10] MEDS ORDERED: Vitamin B-121000 MCG PO (15:14)
[2020-05-10] MEDS ORDERED: VITAMIN D325 MC3 PO (15:15)
[2020-05-10] MEDS ORDERED: PREG100 PO (15:16)
[2020-05-10] MEDS ORDERED: ACET325 PO (15:16)
[2020-05-11 05:43] LABS: International Normalized Ratio 2.25
--- NOTE | 2020-05-11 11:30 | NUR ---
RECIEVED A CALL FROM [facility]FF[facility]. SPOKE BRIEFLY ABOUT THE PT CONDITION ON ARRIVAL AND WOUNDS. SHE WANTED TO SPEAK TO THE PT DIRECTLY, PROVIDED THE PT ROOM PHONE NUMBER FOR HER TO COMMUNICATE.
--- NOTE | 2020-05-11 17:51 | NUR ---
SHIFT SUMMARY- PT ALERT AND ORIENTED BUT FORGETFUL. PT IS AWARE SHE IS IN THE HOSPITAL AND THAT HER WAS SUPPOSED TO BRING IN HER MEDICATION LIST YESTERDAY, BUT SHE SEEMS TO THINK HE IS SUPPOSED TO DO IT AGAIN TODAY. (FOR EXAMPLE) PT IS VERY FRUSTRATED WITH HER FOR NOT COMING IN, OR NOT CALLING HOWEVER HE HAS CALLED AND HAS COME IN ONCE YESTERDAY FOR A COUPLE OF HOURS. PT DOES NOT SEEM TO RECALL THESE MOMENTS. PT HAS CHRONIC PAIN AND REQUESTS PAIN MEDICATION WHEN IT IS AVAILABLE. SHE WENT 12 HOURS TODAY BEFORE REQUESTING ANYTHING. PT HAS BEEN MOSTLY INCONTINENT TODAY HOWEVER WAS ABLE TO USE THE COMMODE ONCE ATTENDS WERE WET WHEN SHE GOT THERE BUT SHE VOIDED IN THE COMMODE WELL. WHEN PT VOIDS SHE DOES A LARGE AMOUNT.
--- NOTE | 2020-05-12 05:18 | NUR ---
FACING BASTER JUMPBASTING SUMMARY PT A&OX4, ABLE TO MAKE NEEDS KNOWN. DEMONSTRATED APPROPRIATE USE OF CALL LIGHT. MEDICATED FOR PAIN PER EMAR. ON TELE 96BPM. NO C/O CHEST PAIN, NO SOB, CURRENT ON 2L OF O2 VIA NC. NO N&V NOTED. PT IS PLEASANT AND COOPERATIVE TO CARE. CALM AND RESTED IN BED T/O SHIFT. WOUND DRESSING TO BLE CDI. WILL CONT TO MONITOR PT. WILL REPORT TO ONCOMING RN.
--- NOTE | 2020-05-12 05:45 | NUR ---
LAB STAFF HANSEL NOTIFIED THIS RN AND YOSSI LILLY THAT PT REFUSED LAB DRAW THIS AM, PT VERBALIZED THAT SHE IS LEAVING TO [place] THIS MORNING.
[2020-05-12] MEDS ORDERED: CIPRO250 MG PO (08:03)
[2020-05-12] MEDS ORDERED: VISBIOME PROBIOTIC PO (08:04)
--- NOTE | 2020-05-12 10:43 | NUR ---
PT AWAKE AT START OF SHIFT, WATCHING TV. REPORTED THAT SHE WAS BEING D/C'D AT 0900 TO SNF IN [place]. WOOD PILE DRIVER OPERATOR CALLED TO REPORT ARRANGEMENTS COMPLETE AND TRANSPORT WOULD BE HERE AT 9 AM. PT CALLED SPOUSE TO BRING HER CLOTHES AND W/C. MEDS GIVEN PER EMAR. PT ABLE TO EAT BREAKFAST AND THEN GET DRESSED. W/C TRANSPORT HERE AT 0915. HARD SCRIPT SENT IN CHART FOR PAIN MEDICATION TO BE GIVEN AT [facility]. PT GOING TO [facility]. HERE WITH PT'S W/C AND BELONGINGS TO SEND WITH HER.
== END 2020-05-12 09:12 | DRG 871 ==
LOC: ER 06:56 → MEDS 12:14
PROVIDERS: Emergency Medicine; Internal Medicine; Nurse Practitioner Acute Care; ADMIT Hospitalist
DX: A41.9 Sepsis, unspecified organism (principal); G92 Toxic encephalopathy; J96.01 Acute respiratory failure with hypoxia; D68.61 Antiphospholipid syndrome; D68.32 Hemorrhagic disorder due to extrinsic circulating anticoagulants; N39.0 Urinary tract infection, site not specified; Z20.828 Contact with and (suspected) exposure to other viral communicable diseases; Z79.01 Long term (current) use of anticoagulants; Z79.4 Long term (current) use of insulin; K21.9 Gastro-esophageal reflux disease without esophagitis; E11.9 Type 2 diabetes mellitus without complications; M94.1 Relapsing polychondritis; I10 Essential (primary) hypertension; K86.89 Other specified diseases of pancreas; L89.320 Pressure ulcer of left buttock, unstageable; F17.210 Nicotine dependence, cigarettes, uncomplicated
CPT/HCPCS: 0202U; 36415; 51702; 71045; 73502; 80053; 81001; 82947; 83605; 83735; 84145; 85025; 85610; 85730; 87040; 87086; 93005; 93010; 94640; 94760; 96365-59; 97110; 97129; 97130; 97162; 97166; 97530; 99285-25; A9270-GY; J0696; J1956; J3475; J7030; J7512